=== PATIENT | female | born 1980 | race Caucasian/White ===

== ENCOUNTER 2020-12-17 09:06 | Outpatient (REF) | payer MEDICARE, MEDICAID, SELFPAY ==
[2020-12-17 10:16] LABS: Hematocrit 38.1 % (37-47); Hemoglobin 12.4 g/dl (12.0-16.0); Mean Corpuscular HGB Conc 32.5 g/dl (31.0-35.0); Mean Corpuscular Hemoglobin 27.6 pg (27.0-33.0); Mean Corpuscular Volume 84.7 fL (80-98); Platelet Count 248 X10*3/uL (160-400); Red Cell Distribution Width 13.2 % (11.0-16.0); White Blood Count 6.5 X10*3/uL (4.8-10.8)
[2020-12-17 11:00] LABS: Cholesterol 182 mg/dL; HDL Cholesterol 55 mg/dL; LDL Cholesterol Calculated 103 mg/dl; Triglycerides 123 mg/dL
[2020-12-17 11:24] LABS: Ferritin 27 ng/mL (10-250); Vitamin D 25-OH Total 27.4 ng/mL (>30)
[2020-12-17 11:25] LABS: Vitamin B12 859 pg/mL (200-900)
== END 2020-12-17 09:07 | disposition home or self-care (01) ==
LOC: HO.10HDL 09:06
PROVIDERS: Visit Provider Internal Medicine
DX: Z00.00 Encounter for general adult medical examination without abnormal findings (principal); Z86.2 Personal history of diseases of the blood and blood-forming organs and certain disorders involving the immune mechanism
CPT/HCPCS: 36415; 80061; 82306; 82607; 82728; 85027

== ENCOUNTER 2023-02-25 11:53 | Outpatient (REF) | payer MEDICARE, MEDICAID, SELFPAY | END 2023-02-25 11:54 | disposition home or self-care (01) | LOC: HO.HHCLNP 11:53 | PROVIDERS: Visit Provider Internal Medicine | DX: N89.8 Other specified noninflammatory disorders of vagina (principal) | CPT/HCPCS: 36415; 81513 ==

== ENCOUNTER 2023-07-24 10:42 | Outpatient (REF) | payer MEDICARE, MEDICAID, SELFPAY ==
--- NOTE | ~2023-07-24 | XR_ITS ---
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 FINDINGS: Lateral view of left forearm revealed irregularity of soft tissues and mild soft tissue swelling distally there is no joint effusion and gas formation and osseous structures are unremarkable. XR/XR forearm LT 2V IMPRESSION: Soft tissue irregularity but no ulcerations or gas formation seen.
--- NOTE | ~2023-07-24 | XR_ITS ---
EXAMINATION: XR FOREARM, RIGHT CLINICAL INFORMATION: Chronic a, with necrosis COMPARISON: None available. TECHNIQUE: AP and lateral views of the right forearm were obtained. FINDINGS: There is soft tissue irregularity consistent with known area of ulcerations. There is no gas in the soft tissues or osseous destruction. XR/XR forearm RT 2V IMPRESSION: Soft tissue irregularity corresponding to the ulcerations.
== END 2023-07-24 10:43 | disposition home or self-care (01) ==
LOC: HO.HHCX 10:42
PROVIDERS: Visit Provider Internal Medicine
DX: L98.493 Non-pressure chronic ulcer of skin of other sites with necrosis of muscle (principal)
CPT/HCPCS: 73090

== ENCOUNTER 2024-10-06 08:00 | Outpatient (RCR) | payer MEDICARE, MEDICAID, SELFPAY | END 2024-11-10 11:59 | disposition home or self-care (01) | LOC: HO.WCC 08:00 | PROVIDERS: PCP Internal Medicine; Referring Provider Internal Medicine; Visit Provider Colon & Rectal Surgery | DX: L98.492 Non-pressure chronic ulcer of skin of other sites with fat layer exposed (principal); M61.032 Myositis ossificans traumatica, left forearm; M61.03 Myositis ossificans traumatica, forearm | CPT/HCPCS: 11042; 11045; 15271; 15272; 15273; 15274; 97597; 97598; 99212; 99213; Q4158 ==

== ENCOUNTER 2024-11-24 09:30 | Outpatient (REF) | payer MEDICARE, MEDICAID, SELFPAY ==
--- OUTSIDE RECORDS SUMMARY | 2024-11-24 09:51 | XMS_ITS | Encounter Summary ---
Author Organization [employer] Address [address] [facility] 7t [place] [address] Care Team Providers Care Hole Digger Name Role Phone Argelia Oh MD Primary Care Provider + Encounter Details Date Type Department Care Team (Late st Contact Info) Description 07/29/2023 Orders Only [facility] MEDICINE [address] [place] [address] Lata Mcdonnell, RAJINDER [address] [place] [address] Social History Tobacco Use Types Packs/Day Years Used Date Smoking Tobacco: Never Passive Smoke Exposure: Never Smokeless Tobacco: Never Alcohol Use Standard Drinks/Week Comments Never 0 (1 standard drink = 0.6 oz pur e alcohol) PHQ-2 Answer Date Recorded Patient Health Questionnaire-2 Score 0 12/22/2022 Housing Stability Answer Date Recorded What is your housing situation today? I have kailee chen 03/16/[address] you li ve. Do you have problems with any of the following? None of the above 03/16/2023 Food Insecurity Answer Date Recorded Within the past 12 months, y ou worried that your food would run out before you got money to buy more: Never True 03/16/2023 Within the past 12 months,th e food you bought just didn't last and you didn't have enough money to get more: Never True Transportation Answer Date Recorded In the past 12 months, has l ack of transportation kept you from medical appts, meetings, work or from getting things needed for daily living? No 03/16/2023 Utilities Answer Date Recorded In the past 12 months, has t he electric, gas, oil or water company threatened to shut off services in your home? No 03/16/2023 Depression Answer Date Recorded Patient Health Questionnaire-2 Score 0 12/22/2022 Comments Unknown Sex and Gender Information Value Date Recorded Sex Assigned at Female 03/24/2022 10:17 AM EDT Legal Sex Female 10:17 AM EDT Gender Identity Female 03/24/2022 10:17 AM EDT Sexual Orientation Choose not to disclose 2021 10:17 AM EDT documented as of this encounter Plan of Treatment Not on file documented as of this encounter Procedures Procedure Name Priority Date/Time Associated Diagnosis Comments PAP SMEAR Routine 07/11/2021 12:00 AM EST documented in this encounter Results * Pap Smear (07/11/2021 12:00 AM EST) Swab us Historical Provider LAB CYTOLOGY ORDERABLES F inal Result Performing Organization Address [facility]/State/[facility] Co de Phone Number [facility] [address] [place] [phone] documented in this encounter Visit Diagnoses Not on filedocumented in this encounter Care Teams Hole Digger Relationship Specialty Start Date End Date Argelia Oh MD [address] [place] [phone] PCP - General Family Medicine 01/08/17 documented as of this encounter
[2024-11-24 11:06] LABS: MANUAL DIFF FLAG NO
[2024-11-24 11:25] LABS: Hematocrit 39.3 % (37.0-47.0); Hemoglobin 12.5 g/dl (12.0-16.0); Imm Gran Abs Auto 0.02 X10*3/uL (0.00-0.03); Imm Gran Pct Auto 0.3 % (0.0-0.4); Lymphocytes Absolute Auto 2.4 X10*3/uL (1.2-4.9); Mean Corpuscular HGB Conc 31.8 g/dl (31.0-35.0); Mean Corpuscular Hemoglobin 25.5 pg (27.0-33.0); Mean Corpuscular Volume 80.2 fL (80.0-98.0); NRBC Abs Auto 0.000 X10*3/uL (0.0-0.012); NRBC Pct Auto 0.0 /100WBC (0.0-0.2); Platelet Count 315 X10*3/uL (160-400); Red Blood Count 4.90 X10*6/uL (4.20-5.50); White Blood Count 7.2 X10*3/uL (4.8-10.8)
[2024-11-24 11:39] LABS: Alanine Aminotransferase 16 U/L (0-31); Albumin Level 4.1 g/dL (3.5-5.0); Alkaline Phosphatase 47 U/L (39-117); Anion Gap 12 (12-20); Aspartate Amino Transferase 25 U/L (5-31); Blood Urea Nitrogen 11 mg/dL (9-16); Calcium 8.8 mg/dL (8.4-10.2); Carbon Dioxide 20 mmol/L (22-29); Chloride 110 mmol/L (96-108); Cholesterol 180 mg/dL (<200); Estimated Glomerular Filt Rate > 60; HDL Cholesterol 68 mg/dL (>40); Potassium 3.8 mmol/L (3.3-5.1); Sodium 138 mmol/L (135-145); Total Protein 7.6 g/dL (6.5-8.0); Triglycerides 158 mg/dL (<150)
[2024-11-24 11:49] LABS: Syphilis Screen Nonreactive (Nonreactive)
[2024-11-24 12:22] LABS: HIV Num 1 0.06 S/CO (0.00-0.99)
[2024-11-24 13:01] LABS: Free T4 (Free Thyroxine) 1.07 ng/dL (0.71-1.85)
[2024-11-24 14:21] LABS: Reflex LDLD? No
[2024-11-28 14:34] LABS: VITAMIN D (1,25 OH) D3 57 pg/mL; Vit D (1,25-Dihydroxy) Total 57 pg/mL (18-72); Vitamin D (1,25 OH) D2 <8 pg/mL
== END 2024-11-24 09:31 | disposition home or self-care (01) ==
LOC: HO.HHCL 09:30
PROVIDERS: PCP Internal Medicine; Visit Provider Internal Medicine
DX: Z00.00 Encounter for general adult medical examination without abnormal findings (principal); Z13.6 Encounter for screening for cardiovascular disorders; Z11.4 Encounter for screening for human immunodeficiency virus [HIV]; F31.70 Bipolar disorder, currently in remission, most recent episode unspecified; L98.493 Non-pressure chronic ulcer of skin of other sites with necrosis of muscle; Z72.89 Other problems related to lifestyle
CPT/HCPCS: 36415; 80053; 80061; 82248; 82652; 84439; 84443; 85025; 85652; 86780; 87389

== ENCOUNTER 2024-12-09 13:51 | Outpatient (REF) | payer MEDICARE, MEDICAID, SELFPAY ==
--- OUTSIDE RECORDS SUMMARY | 2024-12-09 13:53 | XMS_ITS | Encounter Summary ---
Author Organization [employer] Address [address] [facility] 7t [place] [address] Care Team Providers Care Rock Picker Name Role Phone Argelia Oh MD Primary Care Provider + Encounter Details Date Type Department Care Team ([facility] st Contact Info) Description 07/29/2023 Orders Only [facility] MEDICINE [address] [place] [address] Lata Mcdonnell, RAJINDER [address] [place] [address] Social History Tobacco Use Types Packs/Day Years [...] as of this encounter Plan of Treatment Upcoming Encounters Date Type Department Care Team (Late st Contact Info) Description 12/16/2024 8:00 AM EDT Office Visit [facility] CHC ADULT DENTAL [address] [place] [address] Kait Gallardo 02/16/2025 10:30 AM EDT Office Visit [facility] MEDICINE [address] [place], [place] [phone] Argelia Oh MD [address] [place] [phone] documented as of this encounter Procedures Procedure Name Priority Date/Time Associated Diagnosis Comments PAP SMEAR Routine 07/11/2021 12:00 AM EST documented in this encounter Results * Pap Smear (07/11/2021 12:00 AM EST) Swab us Historical Provider LAB CYTOLOGY ORDERABLES F inal Result [facility] [address] [place] [address] documented in this encounter Visit Diagnoses Not on filedocumented in this encounter Care Teams Rock Picker Relationship Specialty Start Date End Date Argelia Oh MD [address] [place] [phone] PCP - General Family Medicine 01/08/17 documented as of this encounter
--- OUTSIDE RECORDS SUMMARY | 2024-12-09 13:53 | XMS_ITS | Encounter Summary ---
Author Organization [place] [facility] Care Team Providers Care Protocol Manager Name Role Phone Chun Kat NP Primary Care Provider Encounter Details Date Type Department Care Team ([facility] st Contact Info) Description 10/22/2015 Abstract [facility] Primary Care [place] [address] [facility], [address] [place] [phone] Provider, Historical . [phone] (Fax) Social History Tobacco Use Types Packs/Day Years Used Date Smoking Tobacco: Never Assessed Comments Unknown Sex and Gender Information Value Date Recorded Sex Assigned at Not on file Legal Sex Female 4:04 PM EDT Gender Identity Not on file Sexual Orientation Not on file documented as of this encounter Plan of Treatment Not on file documented as of this encounter Visit Diagnoses Not on filedocumented in this encounter Care Teams Protocol Manager Relationship Specialty Start Date End Date Chun Kat NP PCP - General 10/11/15 08/13/17 documented as of this encounter
[2024-12-09 16:13] LABS: Alanine Aminotransferase 16 U/L (0-31); Albumin Level 4.2 g/dL (3.5-5.0); Alkaline Phosphatase 52 U/L (39-117); Anion Gap 11 (12-20); Aspartate Amino Transferase 19 U/L (5-31); Blood Urea Nitrogen 15 mg/dL (9-16); Calcium 9.6 mg/dL (8.4-10.2); Carbon Dioxide 23 mmol/L (22-29); Chloride 110 mmol/L (96-108); Estimated Glomerular Filt Rate > 60; Potassium 3.9 mmol/L (3.3-5.1); Sodium 140 mmol/L (135-145); Total Protein 7.9 g/dL (6.5-8.0)
[2024-12-13 23:33] LABS: Thyroglobulin Antibodies <1 IU/mL (< or = 1)
== END 2024-12-09 13:52 | disposition home or self-care (01) ==
LOC: HO.HHCL 13:51
PROVIDERS: PCP Internal Medicine; Visit Provider Nurse Practitioner Family
DX: R79.89 Other specified abnormal findings of blood chemistry (principal); R94.6 Abnormal results of thyroid function studies; R35.89 Other polyuria; R53.83 Other fatigue
CPT/HCPCS: 36415; 80053; 86376; 86800

== ENCOUNTER 2025-01-18 09:39 | Outpatient (REF) | payer MEDICARE, MEDICAID, SELFPAY ==
--- OUTSIDE RECORDS SUMMARY | 2025-01-18 10:18 | XMS_ITS | Clinical Summary ---
Author Organization [employer] Address [address] [place] [phone] Care Team Providers Care Sewage Treatment Plant Operator Name Role Phone Unavailable Primary Care Provider Unavailabl e Medications hydrOXYzine (ATARAX) 50 MG tablet Take 1 tablet (50 mg total) by mouth 3 (three) times daily as needed for Itching. 90 tablet 11/28/2015 Active norethindrone-et hinyl estradiol (ORTHO-NOVUM 1-35 TAB,NORTREL 1-35 TAB) 1-35 mg-mcg per tablet Take 1 tablet by mouth daily. 28 tablet 3 11/28/2015 Active topiramate (TOPAMAX) 200 MG tablet Take 1 tablet (200 mg total) by mouth 2 (two) times daily. 60 tablet 3 11/28/2015 Active Social History Tobacco Use Types Packs/Day Years Used Date Smoking Tobacco: Never Assessed Comments Unknown Sex and Gender Information Value Date Recorded Sex Assigned at Not on file Legal Sex Female 4:04 PM EDT Gender Identity Not on file Sexual Orientation Not on file Plan of Treatment Health Maintenance Due Date Last Done Comments HIV screening 12/30/1992 Hepatitis C screening 12/30/1997 Cervical cancer screening 12/30/2000 Breast cancer screening 2019 Lipid disorder screening 2019 Tetanus adult (Td q 10,TDAP once) 09/27/2023 014 Covid-19 vaccine series ( season) 2024 Colon cancer screening, Colonoscopy 12/30/2024 Diabetes screening 12/30/2024 Influenza vaccine 01/23/2025 RSV Immunization (1 - 1-dose 75+ series) 12/30/2054 Meningococcal B Vaccine Aged Out No l onger eligible based on patient's age to complete this topic Meningococcal Vaccine Aged Out No meaghan rasheeda eligible based on patient's age to complete this topic Pneumococcal Vaccine (2 - 49 years) Aged Out No longer eligible b ased on patient's age to complete this topic
--- OUTSIDE RECORDS SUMMARY | 2025-01-18 10:18 | XMS_ITS | Encounter Summary ---
Author Organization [place] [facility] Care Team Providers Care Screwdown Operator Name Role Phone Chun Kat NP Primary Care Provider [phone] Encounter Details Date Type Department Care Team ([facility] st Contact Info) Description 10/22/2015 Abstract [facility] Primary Care [place] [address] [facility], [address] [place] [phone] Provider, Historical . [phone] (Fax) Social History Tobacco Use Types Packs/Day [...] on filedocumented in this encounter Care Teams Screwdown Operator Relationship Specialty Start Date End Date Chun Kat NP PCP - General 10/11/15 08/13/17 documented as of this encounter
[2025-01-18 11:12] LABS: MANUAL DIFF FLAG NO
[2025-01-18 11:17] LABS: Hematocrit 39.6 % (37.0-47.0); Hemoglobin 12.8 g/dl (12.0-16.0); Imm Gran Abs Auto 0.01 X10*3/uL (0.00-0.03); Imm Gran Pct Auto 0.2 % (0.0-0.4); Lymphocytes Absolute Auto 2.0 X10*3/uL (1.2-4.9); Mean Corpuscular HGB Conc 32.3 g/dl (31.0-35.0); Mean Corpuscular Hemoglobin 26.9 pg (27.0-33.0); Mean Corpuscular Volume 83.2 fL (80.0-98.0); NRBC Abs Auto 0.000 X10*3/uL (0.0-0.012); NRBC Pct Auto 0.0 /100WBC (0.0-0.2); Platelet Count 297 X10*3/uL (160-400); Red Blood Count 4.76 X10*6/uL (4.20-5.50); White Blood Count 6.4 X10*3/uL (4.8-10.8)
[2025-01-18 12:18] LABS: Free T4 (Free Thyroxine) 1.07 ng/dL (0.71-1.85); Thyroid Stimulating Hormone < 0.01 uIU/mL (0.32-4.0)
[2025-01-19 18:33] LABS: Lyme Abs Screen <0.90 index
== END 2025-01-18 09:40 | disposition home or self-care (01) ==
LOC: HO.HHCL 09:39
PROVIDERS: PCP Internal Medicine; Visit Provider Internal Medicine
DX: Z01.84 Encounter for antibody response examination (principal); R79.89 Other specified abnormal findings of blood chemistry; R94.6 Abnormal results of thyroid function studies; R53.1 Weakness
CPT/HCPCS: 36415; 84436; 84439; 84443; 84480; 84481; 85025; 86617; 86618

== ENCOUNTER 2025-02-16 10:02 | Outpatient (AMB) | payer MEDICARE, MEDICAID, SELFPAY ==
[2025-02-16 10:07] VITALS: BP 132/80; PULSE 70; O2SAT 100; BMI 20.9
--- NOTE | 2025-02-16 10:07 | A.OFFVIS_ITS ---
Vital Signs 3 02/16/25 10:07 Height 5 ft 5 in Weight 125 lb 10.616 oz BMI 20.9 BP 132/80 Blood Pressure Location Rt brachial Position Sitting Pulse 70 Pulse Source Pulse Oximeter Pulse Oximetry (%) 100 Oxygen Delivery Method Room Air Intake Visit Reasons: Hyperthyroidism Intake Note: NEW Patient presents here today to establish care for Hyperthyroidism: L Imaging Science Professor Required: No Accompanied by: Self / Same As Patient Allergies clavulanic acid (From AUGMENTIN) Allergy (Intermediate, Verified 02/16/25 10:09) STOMACH UPSET HPI Comments Details: HPI - Onset and duration of symptoms: Fatigue started before the summer. - Nature and severity of symptoms: The patient reports extreme fatigue, requiring sleep earlier than usual (as early as 4 PM). They have been sleeping more than usual, up to 10 hours a night, despite previous insomnia due to bipolar disorder. - Associated symptoms: Increased urination, persistent thirst, and difficulty losing weight despite dietary changes to a vegan diet and regular gym attendance. - Previous episodes of hyperthyroidism: None reported. - Family history of thyroid disease: Patient was adopted - Current and prior treatments: The patient is tapering off methadone for past opiate addiction, currently reducing by 1 mg per month. - Supplements: Taking Miguel multivitamins, probiotic, and metabolism supplements, which contain biotin ROS: - Constitutional: Fatigue - Neuro: No tremors or hand shaking - Psych: History of bipolar disorder; no current anxiety or nervousness - GI: No diarrhea; previously experienced constipation before dietary changes - Eyes: No changes in vision; no double vision or eye pain Physical exam: General: Well appearing. NAD. Not Cushingoid or Acromegalic Neck/Thyroid: Thyroid not enlarged, no nodules. Eyes: No conjunctival injection, not lid lag or proptosis CV: RRR, no murmur. No edema. Resp: Lungs clear to auscultation bilaterally Abdomen: Soft, nontender. nondistended Extremities/Neuro: No weakness or tremor of outstretched hands Labs: PFSH Surgical History (Updated 02/16/25 @ 10:10 by MANDO Schultz) Hx of breast augmentation History of dental surgery Hx of sinus surgery Family History (Updated 02/16/25 @ 10:10 by MANDO Schultz) Father Unknown family medical history Mother Unknown family medical history Social History (Updated 02/16/25 @ 10:09 by Bernabe Jordan Latasha) Alcohol intake: current Alcohol intake frequency: holidays/special occasions only Patient Tobacco Use Status: Never used Tobacco Physical Exam Vital Signs: Last Vital Signs Pulse 70 02/16/25 10:07 BP 132/80 02/16/25 10:07 Pulse Ox 100 02/16/25 10:07 Oxygen Delivery Method Room Air 02/16/25 10:07 BMI result Body Mass Index 20.9 Assessment & Plan Assessment & Plan (1) Thyroid dysfunction: Code(s): E07.9 - Disorder of thyroid, unspecified Category: Medical Plan: - Primary concern is unexplained fatigue. - we discussed in detail her fatigue is a complex symptom which multiple etiologies, and explore some of those etiologies including sleep apnea, insomnia, lack of physical activity, as well as endocrine causes as hypothyroidism, hypothyroidism, adrenal insufficiency. - Symptoms and current labs are not consistent with hyperthyroidism. - per record reviews she had has had thyroid tests checked twice, both showing suppressed TSH, but it seems to be in a setting of this patient taking the supplements containing biotin. - Potential interference of biotin with thyroid function tests. - Discontinue multivitamin supplements containing biotin for at least 7 days and repeat thyroid function tests (TSH, Free T4, Total T3). - Address sleep hygiene and assess for possible sleep disturbances. - Schedule a follow-up appointment in one month to review lab results and discuss further management. (2) Vitamin D deficiency: Code(s): E55.9 - Vitamin D deficiency, unspecified Category: Medical Plan Patient has a history of vitamin-D insufficiency, last checked in 2020 per our records. We will repeat labs and provide supplementation as needed. Advised the patient to start taking vitamin-D supplements 2056-0616 IU daily until labs are resulted Orders: Orders 2 Thyroid Stimulating Hormone 8 Months E07.9 - Disorder of thyroid, unspecified Free T4 (Free Thyroxine) 8 Months E07.9 - Disorder of thyroid, unspecified Triiodothyronine T3 Total 8 Months E07.9 - Disorder of thyroid, unspecified Vitamin D 25-OH Total Today E07.9 - Disorder of thyroid, unspecified Coding Level of Care Code New Pt Level 4 (05296) Diagnoses Thyroid dysfunction E07.9 Vitamin D deficiency E55.9 Time Spent (min) 45 Comment Time spent on review of previous records, history, exam/plan and patient education.
--- OUTSIDE RECORDS SUMMARY | 2025-02-16 12:06 | XMS_ITS | Encounter Summary ---
Author Organization [employer] Address [address] [facility] 7t [place] [address] Care Team Providers Care Milk Bottling Machine Operator Name Role Phone Argelia Oh MD Primary Care Provider + Encounter Details Date Type Department Care Team (Latest Contact Info) Description 02/15/2025 Travel Social History Tobacco Use Types Packs/Day Years Used Date Smoking Tobacco: Never Passive Smoke Exposure: Never Smokeless Tobacco: Never Alcohol Use Standard Drinks/Week Comments Never 0 (1 standard drink = 0.6 oz pur e alcohol) PHQ-2 Answer Date Recorded Patient Health Questionnaire-2 Score 0 12/22/2022 Alcohol Answer Date Recorded Frequency of Alcohol Consumption Not on file 09/16/2023 Average Number of Drinks Not on file 024 Frequency of Binge Drinking Not on file 08/24 Score 0 09/16/2023 Housing Stability Answer Date Recorded What is your housing situation today? I have kailee chen 07/22/[address] you li ve. Do you have problems with any of the following? None of the above 07/22/2024 Food Insecurity Answer Date Recorded Within the past 12 months, y ou worried that your food would run out before you got money to buy more: Never True 07/22/2024 Within the past 12 months,th e food you bought just didn't last and you didn't have enough money to get more: Never True Transportation Answer Date Recorded In the past 12 months, has l ack of transportation kept you from medical appts, meetings, work or from getting things needed for daily living? No 07/22/2024 Utilities Answer Date Recorded In the past 12 months, has t he electric, gas, oil or water company threatened to shut off services in your home? No 07/22/2024 Depression Answer Date Recorded Patient Health Questionnaire-2 Score 0 12/22/2022 Internet Access Answer Date Recorded Internet Access Q1 Yes 07/22/2024 Internet Access Q2 Not on file 07/22/2024 Comments No Sex and Gender Information Value Date Recorded Sex Assigned at Female 03/24/2022 10:17 AM EDT Legal Sex Female 10:17 AM EDT Gender Identity Female 03/24/2022 10:17 AM EDT Sexual Orientation Choose not to disclose 2021 10:17 AM EDT documented as of this encounter Plan of Treatment Upcoming Encounters Date Type Department Care Team (Late st Contact Info) Description 02/16/2025 3:15 PM EDT Office Visit [facility] MEDICINE [address] [place] [phone] Argelia Oh MD [address] [place] [address] documented as of this encounter Visit Diagnoses Not on filedocumented in this encounter Care Teams Milk Bottling Machine Operator Relationship Specialty Start Date End Date Argelia Oh MD [address] [place] [address] PCP - General Family Medicine 01/08/17 documented as of this encounter
--- OUTSIDE RECORDS SUMMARY | 2025-02-16 12:06 | XMS_ITS | Encounter Summary ---
Author Organization [employer] Address [address] [place] [address] 7 [place] [address] Care Team Providers Care Typewriter Assembler Name Role Phone Argelia Oh MD Primary Care Provider + Reason for Visit * Reason Onset Date Comments Med Refill 05/12/2024 Encounter Details Date Type Department Care Team ([facility] st Contact Info) Description 05/12/2024 Telephone [facility] MEDICINE [address] [place] [address] Argelia Oh MD [address] [place] [address] Med Refill Social History Tobacco Use Types Packs/Day Years [...] AM EDT documented as of this encounter Miscellaneous Notes * Telephone Encounter - Diane Joiner LPN - 05/12/2024 11:32 AM EST Medication pended to PCP for approval. * Telephone Encounter - Aryan Schofield - 05/12/2024 11:26 AM EST TC from pt requesting medication refill. Medications needing refill : valACYclovir (Valtrex) 1 g tablet To be sent to: [id number] [address] [facility] documented in this encounter Plan of Treatment Upcoming Encounters Date Type Department Care Team (Late st Contact Info) Description 02/16/2025 3:15 PM EDT Office Visit [facility] MEDICINE [address] [place] [address] Argelia Oh MD [address] [place] [address] documented as of this encounter Visit Diagnoses Not on filedocumented in this encounter Care Teams Typewriter Assembler Relationship Specialty Start Date End Date Argelia Oh MD [address] [place] [phone] PCP - General Family Medicine 01/08/17 documented as of this encounter
--- OUTSIDE RECORDS SUMMARY | 2025-02-16 12:06 | XMS_ITS | Encounter Summary ---
Author Organization [employer] Address [address] [facility] 7 [place] [address] Care Team Providers Care Clinic Director Name Role Phone Argelia Oh MD Primary Care Provider + Reason for Visit * Reason Onset Date Comments chart prep 02/15/2025 Encounter Details Date Type Department Care Team ([facility] st Contact Info) Description 02/15/2025 Telephone [facility] MEDICINE [address] [place] [address] Argelia Oh MD [address] [place] [address] chart prep Social History Tobacco Use Types Packs/Day Years [...] encounter Miscellaneous Notes * Telephone Encounter - Radha Howard MA - 02/15/2025 2:32 PM EDT Chart Prep Labs: done Images: not applicable Referrals: appointment pending Vaccines due: Covid, Flu, Hep B, and HPV Screenings: colonoscopy and mammogram Overdue care gaps: SBIRT, PHQ-9, PETROS-7, and Disability screen documented in this encounter Plan of Treatment Upcoming Encounters Date Type Department Care Team (Late st Contact Info) Description 02/16/2025 3:15 PM EDT Office Visit [facility] MEDICINE [address] [place] [address] Argelia Oh MD [address] [place] [address] documented as of this encounter Visit Diagnoses Not on filedocumented in this encounter Care Teams Clinic Director Relationship Specialty Start Date End Date Argelia Oh MD [address] [place] [phone] PCP - General Family Medicine 01/08/17 documented as of this encounter
--- OUTSIDE RECORDS SUMMARY | 2025-02-16 12:06 | XMS_ITS | Clinical Summary ---
Author Organization [employer] Address [address] [place] [phone] Care Team Providers Care Territory Sales Professional Name Role Phone Unavailable Primary Care Provider [...] adult (Td q 10,TDAP once) 09/27/2023 014 Influenza vaccine 12/23/2024 Colon cancer screening, Colonoscopy 12/30/2024 Diabetes screening 12/30/2024 Covid-19 vaccine series ( - season) 2025 RSV Immunization (1 - 1-dose 75+ series) [...]
--- OUTSIDE RECORDS SUMMARY | 2025-02-16 12:06 | XMS_ITS | Encounter Summary ---
Author Organization [employer] Address [address] [facility] 7t [place] [address] Care Team Providers Care General Handling Supervisor Name Role Phone Argelia Oh MD Primary Care Provider + Encounter Details Date Type Department Care Team ([facility] st Contact Info) Description 07/29/2023 Orders Only [facility] MEDICINE [address] [place] [address] Lata Mcdonnell, RAJINDER [address] [place] [address] Social History Tobacco Use Types Packs/Day Years [...] Description 02/16/2025 3:15 PM EDT Office Visit [facility] MEDICINE [address] [place] [phone] Argelia Oh MD [address] [place] [phone] documented as of this encounter Procedures Procedure Name Priority Date/Time Associated Diagnosis Comments PAP SMEAR Routine 07/11/2021 12:00 AM EST documented in this encounter Results * Pap Smear (07/11/2021 12:00 AM EST) Swab us Historical Provider LAB CYTOLOGY ORDERABLES F inal Result [facility] [address] [place] [address] documented in this encounter Visit Diagnoses Not on filedocumented in this encounter Care Teams General Handling Supervisor Relationship Specialty Start Date End Date Argelia Oh MD [address] [place] [phone] PCP - General Family Medicine 01/08/17 documented as of this encounter
--- OUTSIDE RECORDS SUMMARY | 2025-02-16 12:06 | XMS_ITS | Clinical Summary ---
Author Organization [employer] Address [address] [facility] [address] [place] [address] Care Team Providers Care Executive Assistant Name Role Phone Argelia Oh MD Primary Care Provider + Allergies No known active allergies Medications topiramate (Topamax) 200 MG tabletIndicati ons:Nonintract able chronic migraine TAKE 1 TABLET(200 MG) BY MOUTH TWICE DAILY 180 tablet 3 03/22/20 24 Active methadone (Dolophine) 10 MG/ML solution Take 40 mg by mouth. Active Sodium Fluoride 1.1 % creamIndicatio ns:Dental caries [place] teeth for 2 minutes, morning and night. Spit, do not rinse. Do not eat or drink anything for 30 minutes following use. 112 g 3 06/15/19 25 Active valACYclovir (Valtrex) 1 g tablet TAKE 2 TABLETS BY MOUTH EVERY 12 HOURS 4 tablet 5 01/19/20 25 Active valACYclovir (Valtrex) 1 g tablet TAKE 2 TABLETS BY MOUTH EVERY 12 HOURS 4 tablet 5 05/12/20 24 025 Discontinued Active Problems Problem Noted Date Diagnosed Date Polyuria 12/09/2024 Other fatigue 12/09/2024 Assessment & Plan (12/10/2024 10:55 AM EDT): Fatigue despite adequate sleep, possibly related to thyroid. Labs as ordered below Low TSH level 12/09/2024 Assessment & Plan (12/10/2024 10:54 AM EDT): Pcp has ordered work up, pt reports symptoms are worsening, reasonable to repeat labs today. If normal, I would order repeat thyroid panel in 4-8 weeks. Pt aware of plan Encounter for preventive health examination 05/2023 Assessment & Plan (07/29/2024 11:16 AM EST): Discussed with patient re increase fresh fruit and vegetable intake. Counseled re moderate exercise as tolerated, up to 20min/d Patient feels safe at home. PAP smear: UTD, will obtain record from [facility]. Mammogram: apparently UTD, will obtain records from [facility]. Eye exam: UTD 11/2025 Lipids/FBS: Overdue, remind to get labs done. Vaccinations: agreed to have Influenza today, other Adult IZ are UTD. Dental visit: UTD next one 11/2024 Assessment & Plan (07/24/2023 10:30 AM EST): Discussed with patient re increase fresh fruit and vegetable intake. Counseled re moderate exercise as tolerated, up to 20min/d Patient feels safe at home. PAP smear up to date, will obtain record from [facility] Mammogram apparently up to date, will obtain records from [facility] Eye exam overdue, she will make an appointment with her eye doctor Labs overdue, to be ordered Vaccinations TD up to date, Flu today. Dental visit overdue, info of dental clinics given today Chronic ulcer of skin, with necrosis of muscle 0 07/24/2023 Assessment & Plan (09/17/2023 9:05 AM EDT): Significant improvement on Alginate. Awaiting insurance approval for skin grafting Fu closely with wound clinic. Assessment & Plan (07/24/2023 3:39 PM EST): On both forearms, s/p IVDU Order HIV and Hepatitis testing Wound dressing with abs ointment done by RN today, will refer to wound clinic. Continue daily dressings with topical abs. Other problems related to lifestyle 07/24/2023 Assessment & Plan (07/24/2023 3:39 PM EST): Hepatitis profile ordered. Vaginal discharge 02/25/2023 Opioid dependence in remission 12/22/2022 Assessment & Plan (07/29/2024 12:43 PM EST): Apparently doing well on Methadone. Reminded her to follow up closely with gymnastic coach and Methadone clinicians. Advised to avoid rapid taper of Methadone. Assessment & Plan (09/17/2023 9:03 AM EDT): - Overall pt is doing well on 60 mg on Methadone, plans to continue to cut down slowly (1mg/mo or weekly if she can)) Assessment & Plan (07/24/2023 10:29 AM EST): Currently on methadone, advised to slow down the taper due to recent relapse Fu w mental health program Assessment & Plan (12/22/2022 5:12 PM EDT): Doing well, cutting down on Methadone Continue fu with methadone clinic pt feels safe at home and is able to reach out for safety Bipolar disorder in full remission 12/22/2022 Assessment & Plan (07/29/2024 12:41 PM EST): She is doing well on Topamax. Was referred to [facility] by Methadone counselor she will call for appointment. She is advised to reach out to us in case she need more information. Continue Topamax 200 mg BID. Continue opiate replacement therapy. Patient feels safe at home and is able to reach out for safety. Assessment & Plan (09/17/2023 9:04 AM EDT): Patient has been referred to counseling, was contacted and they will reach out to her with information Continue Topamax for now Counseled to fu closely with methadone program/counselor Assessment & Plan (07/24/2023 3:38 PM EST): Doing fairly well on Topamax, I will continue to Rx medications Counseled to slow down methadone taper and address this with recover transit coach operator Will refer to to help her connect with a prescriber / counselor Assessment & Plan (12/22/2022 5:12 PM EDT): Doing well on topamax 200mg BID continue fu with couselor at [facility] and [facility] Pt is able to reach out for safety counseled to avoid recreational substances FU with me in 6 months for PE Visual impairment 09/24/2022 Trichomonal infection 09/24/2022 Plantar fasciitis 09/24/2022 Pain in female genitalia on intercourse 09/25/19 23 Lower urinary tract symptoms 09/24/2022 Assessment & Plan (12/10/2024 10:54 AM EDT): Reassuring UA in clinic. Continue to monitor Candidiasis 09/24/2022 Herpes labialis 06/23/2017 Assessment & Plan (12/22/2022 5:13 PM EDT): No recent episodes pt to call back PRN for valtrex Encounters Date Type Department Care Team Description 02/15/[address] [address] Argelia Oh MD chart prep 02/15/2025 Travel 02/08/2025 Patient Outreach [address] [address] Argelia Oh MD Pre-visit Planning (SDCT screening completed on 07/22/2024) 01/26/2025 Results Follow-Up [address] [address] Argelia Oh MD Lyme Disease Ab with Reflex to Blot (IgG, IgM), TSH with Reflex to Free T4, CBC auto differential 01/16/[address] [address] Argelia Oh MD 01/11/[address] [address] Argelia Oh MD Lab Orders 01/10/2025 8:00 AM EDT Office Visit [facility] [address] [place] [address] Kavita Sanchez DDS 12/22/2024 9:00 AM EDT Office Visit [facility] [address] [place] [address] Kavita Sanchez, DDS 12/22/2024 8:00 AM EDT Office Visit [facility] [address] [place] [address] Toan Martins Dental calculus (Primary Dx) 12/21/[address] [address] Argelia Oh MD Results 12/16/2024 8:00 AM EDT Office Visit [facility] [address] [place] [address] Kavita Sanchez DDS 12/16/2024 Results Follow-Up [address] [address] Kristine Mitchell NP Comprehensive Metabolic Panel, POCT urinalysis dipstick manually resulted 12/15/2024 Travel 12/09/2024 1:20 PM EDT Office Visit [facility] [address] [place] [phone] Kristine Mitchell NP Lower urinary tract symptoms (Primary Dx); Polyuria; Other fatigue; Low TSH level 12/09/2024 Travel 12/09/[address] [address] Argelia Oh MD Nurse Triage 11/24/2024 Results Follow-Up [address] [address] Argelia Oh MD CBC auto differential, Comprehensive Metabolic Panel, Hepatic Function Panel, Additional followed-up results: 6 11/24/[address] [address] Argelia Oh MD January recall from Last 3 Months Immunizations Immunization Administration Dates Next Due Influenza injectable quadriv alent IIV4 with preservative 04/02/2017,02/25/2016 Influenza injectable quadrivalent preservative f ree 03/12/2020 Pfizer Covid-19 Vaccine 12+ 09/06/2020, Tdap 03/12/2020 Social History Tobacco Use Types Packs/Day Years Used Date Smoking Tobacco: Never Passive Smoke Exposure: Never Smokeless Tobacco: Never Tobacco Cessation:Counseling Given: Not Answered Alcohol Use Standard Drinks/Week Comments Never 0 [...] not to disclose 2021 10:17 AM EDT Last Filed Vital Signs Vital Sign Reading Time Taken Comments Blood Pressure 120/78 01/10/2025 8:13 AM EDT Pulse 66 12/22/2024 8:04 AM EDT Temperature 36.7 C (98 F) 12/09/2024 1:15 PM EDT Respiratory Rate 18 12/09/2024 1:15 PM EDT Oxygen Saturation 100% 12/09/2024 1:15 PM EDT Inhaled Oxygen Concentration - - Weight 58.3 kg (128 lb 9.6 oz) 12/09/2024 1:15 P M EDT Height 165.1 cm (5' 5 ) 12/09/2024 1:15 PM EDT Body Mass Index 21.4 12/09/2024 1:15 PM EDT Plan of Treatment Upcoming Encounters Date Type Department Care Team (Late st Contact Info) Description 02/16/2025 3:15 PM EDT Office Visit [facility] [address] [place] [address] Argelia Oh MD [address] [place], [place] [phone] Health Maintenance Due Date Last Done Comments CT Colonography 1979 Colonoscopy 1979 Colorectal Cancer Screening 1979 FIT DNA/Cologuard 1979 FIT 1979 FOBT 1979 Sigmoidoscopy 1979 Alcohol/Substance Use Screening 1991 Family Planning (PISQ) 12/30/1994 HPV Vaccines (1 - 3-dose series) 12/30/1994 Hepatitis C Screening 12/30/1997 Hepatitis B Vaccines (1 of 3 - 19+ 3-dose series) 12/30/1998 Mammogram 11/13/2023 11/12/2022 Depression Screening 12/23/2023 12/22/2022, 12/23/19 23 Dental Oral Exam 12/14/2024 06/15/2024, 07/2016, 01/29/2016 COVID-19 Vaccine ( season) 2025 04/09/2021, 09/06/2020, 08/16/2020 Influenza Vaccine (#1) 2025 , 04/09/2021, 03/12/2020, Additional history exists Cervical Cancer Screening 03/12/2025 HPV/Cotest 03/12/2025 03/12/2020 Dental Prophylaxis 06/25/2025 12/22/2024, 1 07/21/2023, 11/18/2017, Additional history exists SDOH Screening 07/22/2025 07/22/2024 Dental X-Ray: Bitewings 12/17/2025 12/17/19 25, 05/20/2024, 11/18/2017, Additional history exists Tobacco Screening 01/10/2026 01/10/2025 Disability Screening 02/15/2026 02/15/2025 Pap Smear 07/11/2026 07/11/2021, 03/12/2020 Dental X-Ray: Full Mouth 05/21/2027 05/20/2024, 09/0 10/2015 Zoster Vaccines (1 of 2) 12/30/2029 DTaP/Tdap/Td Vaccines (2 - Td or Tdap) 03/12/2030 03/12/2020 RSV Patients and Patients Aged 60 years or older (1 - 1-dose 75+ series) 12/30/2054 Hepatitis A Vaccines Aged Out 01/05/2020 No long er eligible based on patient's age to complete this topic HIV Screening Completed 11/24/2024 HIB Vaccines Aged Out No longer eligi ble based on patient's age to complete this topic IPV Vaccines Aged Out No longer eligi ble based on patient's age to complete this topic Meningococcal B Vaccine Aged Out No l onger eligible based on patient's age to complete this topic Meningococcal Vaccine Aged Out No meaghan rasheeda eligible based on patient's age to complete this topic Pneumococcal Vaccine: Pediatrics (0 to 5 Years) and At-Risk Patients (6 to 49) Years Aged Out No longer eligible based on patient's age to complete this topic RSV under 20 months Aged Out No longe r eligible based on patient's age to complete this topic Rotavirus Vaccines Aged Out No longer eligible based on patient's age to complete this topic Procedures Procedure Name Priority Date/Time Associated Diagnosis Comments CBC WITH AUTO DIFFERENTIAL Routine 01/18/2025 9:53 AM EDT Low TSH level Weakness TSH W/REFLEX TO FT4 Routine 01/18/2025 9 :53 AM EDT Low TSH level Weakness LYME DISEASE AB W/REFL TO BLOT (IGG, IGM) Routine 01/18/2025 9:53 AM EDT Low TSH level Weakness T4 (THYROXINE), TOTAL Routine 01/18/2025 9:53 AM EDT Low TSH level Abnormal thyroid function test TSH Routine 01/18/2025 9:53 AM EDT Low TSH level Abnormal thyroid function test T4, FREE Routine 01/18/2025 9:53 AM EDT Low TSH level Abnormal thyroid function test T3, TOTAL Routine 01/18/2025 9:53 AM EDT Low TSH level Abnormal thyroid function test T3, FREE Routine 01/18/2025 9:53 AM EDT Low TSH level Abnormal thyroid function test CASE PRESENTATION, DETAILED AND EXTENSIVE TREATMENT PLANNING Routine 01/10/2025 8:00 AM EDT 11 DFL RESIN-BASED COMPOSITE - 3 SURF, ANTERIOR Routine 01/10/2025 8:00 AM EDT CASE PRESENTATION, DETAILED AND EXTENSIVE TREATMENT PLANNING Routine 12/22/2024 9:00 AM EDT 10 DL RESIN-BASED COMPOSITE - 2 SURF, ANTERIOR Routine 12/22/2024 9:00 AM EDT PROPHYLAXIS - ADULT Routine 12/22/2024 8 :00 AM EDT CASE PRESENTATION, DETAILED AND EXTENSIVE TREATMENT PLANNING Routine 12/22/2024 8:00 AM EDT ORAL HYGIENE INSTRUCTIONS Routine 12/22/2024 8:00 AM EDT COMPREHENSIVE PERIODONTAL EVALUATION - NEW OR ESTABLISHED PATIENT Routine 12/16/2024 8:00 AM EDT BITEWINGS - 4 RADIOGRAPHIC IMAGES Routine 12/16/2024 8:00 AM EDT INTRAORAL - PERIAPICAL EACH ADDITIONAL RADIOGRAPHIC IMAGE Routine 12/16/2024 8:00 AM EDT INTRAORAL - PERIAPICAL FIRST RADIOGRAPHIC IMAGE Routine 12/16/2024 8:00 AM EDT CASE PRESENTATION, DETAILED AND EXTENSIVE TREATMENT PLANNING Routine 12/16/2024 8:00 AM EDT POCT URINALYSIS DIPSTICK Routine 12/09/2024 1:59 PM EDT Lower urinary tract symptoms COMPREHENSIVE METABOLIC PANEL Routine 12/09/2024 1:55 PM EDT Polyuria Other fatigue THYROGLOBULIN ANTIBODIES Routine 12/09/2024 1:55 PM EDT Low TSH level Abnormal thyroid function test THYROID PEROXIDASE ANTIBODIES Routine 12/09/2024 1:55 PM EDT Low TSH level Abnormal thyroid function test VITAMIN D 1,25 DIHYDROXY Routine 11/24/2024 9:38 AM EDT T4, FREE Routine 11/24/2024 9:38 AM EDT HIV 1/2 ANTIGEN/ANTIBODY, FOURTH GENERATION W/RFL Routine 11/24/2024 9:38 AM EDT TSH W/REFLEX TO FT4 Routine 11/24/2024 9 :38 AM EDT SED RATE BY MODIFIED WESTERGREN Routine 11/24/2024 9:38 AM EDT SYPHILIS SCREEN Routine 11/24/2024 9:38 AM EDT LIPID PANEL WITH REFLEX TO DIRECT LDL Routine 11/24/2024 9:38 AM EDT HEPATIC FUNCTION PANEL Routine 9:38 AM EDT COMPREHENSIVE METABOLIC PANEL Routine 11/24/2024 9:38 AM EDT CBC WITH AUTO DIFFERENTIAL Routine 11/24/2024 9:38 AM EDT PERIODIC ORAL EVALUATION - ESTABLISHED PATIENT Routine 06/15/2024 11:00 AM EST Dental caries INTRAORAL - COMPLETE SERIES OF RADIOGRAPHIC IMAGES Routine 05/20/2024 9:00 AM EST PAP SMEAR Routine 07/11/2021 12:00 AM EST HPV GENOTYPES 16,18/45 Routine 12:39 PM EDT from Last 3 Months or Most Recently Relevant to Health Maintenance Results * (ABNORMAL) TSH with Reflex to Free T4 (01/18/2025 9:53 AM EDT) Only the most recent of2 resultswithin the time period is included. TSH reflex Free T4 <0.01(L) 0.32 - 4.0 uIU/mL [facility] Blood 01/18/2025 9:53 AM EDT 01/18/2025 11:02 AM EDT Argelia Oh MD LAB BLOOD ORDERABLES Fin al Result Performing Organization Address [facility] Co de Phone Number [facility] [address] [place] [phone] * Lyme Disease Ab with Reflex to Blot (IgG, IgM) (01/18/2025 9:53 AM EDT) Lyme Antibody Screen <0.90 index [facility] Comment:Index Interpretation ----- < 0.90 Negative 0.90-1.09 Equivocal > 1.09 PositiveAs recommended by the Food and Drug Administration(FDA), all samples with positive or equivocalresults in a Borrelia burgdorferi antibody screenwill be tested using a blot method. Positive orequivocal screening test results should not beinterpreted as truly positive until verified as suchusing a supplemental assay (e.g., B. burgdorferi blot).The screening test and/or blot for B. burgdorferiantibodies may be falsely negative in early stagesof Lyme disease, including the period when erythemamigrans is apparent.THIS TEST WAS PERFORMED AT:[facility] [place] [phone] RANGEL MD Lyme Blot TNP [facility] 01/18/2025 9:53 AM EDT 01/18/2025 11:23 AM EDT Argelia Oh MD LAB BLOOD ORDERABLES Fin al Result Performing Organization Address [facility]/ZIP Co de Phone Number [facility] [address] [place] [phone] * (ABNORMAL) CBC auto differential (01/18/2025 9:53 AM EDT) Only the most recent of2 resultswithin the time period is included. White Blood Count 6.4 4.8 - 10.8 X10*3/uL [facility] Red Blood Count 4.76 4.20 - 5.50 X10*6/uL [facility] Hemoglobin 12.8 12.0 - 16.0 g/dl [facility] Hematocrit 39.6 37.0 - 47.0 % [facility] Mean Corpuscular Volume 83.2 80.0 - 98.0 fL [facility] Mean Corpuscular Hemoglobin 26.9(L) 27.0 - 33.0 pg [facility] Mean Corpuscular HGB Conc 32.3 31.0 - 35.0 g/dl [facility] Red Cell Distribution Width 14.5 11.0 - 16.0 % [facility] Platelet Count 297 160 - 400 X10*3/uL [facility] Mean Platelet Volume 10.2 9.4 - 12.3 fL [facility] Neutrophils Percent Auto 58.8 45 - 73 % [facility] Imm Gran Pct Auto 0.2 0.0 - 0.4 % [facility] Lymphocytes Percent Auto 31.9 20 - 40 % [facility] Monocytes Percent Auto 4.1 2 - 11 % [facility] Eosinophils Percent Auto 4.8(H) 0 - 4 % [facility] Basophils Percent Auto 0.2 0 - 2 % [facility] NRBC Pct Auto 0.0 0.0 - 0.2 /100WBC [facility] Neutrophils Absolute Auto 3.8 2.0 - 8.3 x10*3/uL [facility] Imm Gran Abs Auto 0.01 0.00 - 0.03 X10*3/uL [facility] Lymphocytes Absolute Auto 2.0 1.2 - 4.9 X10*3/uL [facility] Monocytes Absolute Auto 0.3 0.1 - 1.2 X10*3/uL [facility] Eosinophils Absolute Auto 0.3 0.0 - 0.4 X10*3/uL [facility] Basophils Absolute Auto 0.0 0.0 - 0.2 X10*3/uL [facility] NRBC Abs Auto 0.000 0.0 - 0.012 X10*3/uL [facility] Blood Venous blood specimen / Unknown 01/18/2025 9:53 AM EDT 01/18/2025 11:02 AM EDT Argelia Oh MD LAB BLOOD ORDERABLES Fin al Result Performing Organization Address [facility]/ZIP Co de Phone Number [facility] [address] [place] [phone] * T3, Free (01/18/2025 9:53 AM EDT) T3, Free 3.9 2.3 - 4.2 pg/mL [facility] Comment:THIS TEST WAS PERFOR MED AT:[facility] [place] [id number] RANGEL MD Blood Venous blood specimen / Unknown 01/18/2025 9:53 AM EDT 01/18/2025 11:02 AM EDT Argelia Oh MD LAB BLOOD ORDERABLES Fin al Result Performing Organization Address [facility] Co de Phone Number [facility] [address] [place] [phone] * (ABNORMAL) T3, Total (01/18/2025 9:53 AM EDT) T3, Total 184(A) 76 - 181 ng/dL [facility] Comment:THIS TEST WAS PERFOR MED AT:[facility] [place] [phone] RANGEL MD Blood Venous blood specimen / Unknown 01/18/2025 9:53 AM EDT 01/18/2025 11:02 AM EDT Argelia Oh MD LAB BLOOD ORDERABLES Fin al Result Performing Organization Address [facility] Co de Phone Number [facility] [address] [place] [phone] * (ABNORMAL) TSH (01/18/2025 9:53 AM EDT) Thyroid Stimulating Hormone <0.01(L) 0.32 - 4.0 uIU/mL [facility] Comment:TSH 3rd Generation ( [facility]) Blood Venous blood specimen / Unknown 01/18/2025 9:53 AM EDT 01/18/2025 11:02 AM EDT Argelia Oh MD LAB BLOOD ORDERABLES Fin al Result Performing Organization Address [facility] de Phone Number [facility] [address] [place] [phone] * T4, Free (01/18/2025 9:53 AM EDT) Only the most recent of2 resultswithin the time period is included. Free T4 (Free Thyroxine) 1.07 0.71 - 1.85 ng/dL [facility] Blood Venous blood specimen / Unknown 01/18/2025 9:53 AM EDT 01/18/2025 11:02 AM EDT Argelia Oh MD LAB BLOOD ORDERABLES Fin al Result Performing Organization Address [facility] Co de Phone Number [facility] [address] [place] [phone] * T4 (Thyroxine), Total (01/18/2025 9:53 AM EDT) T4 Thyroxine 11.5 4.5 - 12.0 ug/dL [facility] Blood Venous blood specimen / Unknown 01/18/2025 9:53 AM EDT 01/18/2025 11:02 AM EDT Argelia Oh MD LAB BLOOD ORDERABLES Fin al Result Performing Organization Address [facility]/ZIP Co de Phone Number [facility] [address] [place] [phone] * POCT urinalysis dipstick manually resulted (12/09/2024 1:59 PM EDT) Color, UA Yellow Clarity, UA Clear Glucose, UA Negative Bilirubin, UA Negative Ketones, UA Negative Spec Grav, UA 1.025 Blood, UA Negative Negative, None Detected pH, UA 6.0 Protein, UA Negative Urobilinogen, UA 0.2 Leukocytes, UA Negative Negative, Rare, Trace Nitrite, UA Negative Negative, None Detected Urine 12/09/2024 1:59 PM EDT Result [facility] Kristine Mitchell NP POINT OF CARE TEST ENTER/EDIT OR DERABLES Final Result * Thyroid Peroxidase Antibodies (12/09/2024 1:55 PM EDT) Thyroid Peroxidase Antibodies 1 <9 IU/mL [facility] Comment:THIS TEST WAS PERFOR MED AT:[facility] [place] [phone] RANGEL MD Blood Venous blood specimen / Unknown 12/09/2024 1:55 PM EDT 12/09/2024 3:51 PM EDT Argelia Oh MD LAB BLOOD ORDERABLES Fin al Result Performing Organization Address City/[facility]/ZIP Co de Phone Number [facility] [address] [place] [phone] * Thyroglobulin Antibodies (12/09/2024 1:55 PM EDT) Thyroglobulin Antibodies <1 < or = 1 IU/mL [facility] Comment:THIS TEST WAS PERFOR MED AT:[facility] [place] [phone] RANGEL MD Blood Venous blood specimen / Unknown 12/09/2024 1:55 PM EDT 12/09/2024 3:51 PM EDT us Argelia Oh MD LAB BLOOD ORDERABLES Fin al Result [facility] [address] [place] [phone] * (ABNORMAL) Comprehensive Metabolic Panel (12/09/2024 1:55 PM EDT) Only the most recent of2 resultswithin the time period is included. Sodium 140 135 - 145 mmol/L [facility] Potassium 3.9 3.3 - 5.1 mmol/L [facility] Chloride 110(H) 96 - 108 mmol/L [facility] Carbon Dioxide 23 22 - 29 mmol/L [facility] Anion Gap 11(L) 12 - 20 [facility] Urea Nitrogen (BUN) 15 9 - 16 mg/dL [facility] Creatinine, Serum 0.70 0.5 - 1.4 mg/dL [facility] Estimated Glomerular Filt Rate >60 [facility] Comment:Chronic Kidney Disea se: Estimated GFR < 60 mL/min/[id number] Kidney Disease: Estimated GFR < 15 mL/min/1.73m2 Glucose 82 60 - 115 mg/dL [facility] Calcium 9.6 8.4 - 10.2 mg/dL [facility] Bilirubin, Total 0.3 0.0 - 1.0 mg/dL [facility] Aspartate Amino Transferase 19 5 - 31 U/L [facility] Alanine Aminotransferase 16 0 - 31 U/L [facility] Total Protein 7.9 6.5 - 8.0 g/dL [facility] Albumin Level 4.2 3.5 - 5.0 g/dL [facility] Alkaline Phosphatase 52 39 - 117 U/L [facility] Blood Venous blood specimen / Unknown 12/09/2024 1:55 PM EDT 12/09/2024 3:51 PM EDT us Kristine Mitchell NP LAB BLOOD ORDERABLES Final Resul t Performing Organization Address City/[facility]/ZIP Co de Phone Number [facility] [address] [place] [phone] * Syphilis Screen (11/24/2024 9:38 AM EDT) Syphilis Screen Nonreactive Nonreactive [facility] 11/24/2024 9:38 AM EDT 11/24/2024 11:02 AM EDT us Argelia Oh MD LAB BLOOD ORDERABLES Fin al Result Performing Organization Address City/[facility] Co de Phone Number [facility] [address] [place] [phone] * (ABNORMAL) Lipid Panel with Reflex to Direct LDL (11/24/2024 9:38 AM EDT) Triglycerides 158(H) <150 mg/dL [facility] Comment:Desirable Triglyceri de: less than 150 mg/dLBorderline High Triglyceride 150-199 mg/dLHigh Triglyceride: 200-499 mg/dLVery High Triglyceride: greater than or equal to 5OO mg/dL Cholesterol 180 <200 mg/dL [facility] Comment:Desirable Cholestero l: less than 200 mg/dLBorderline High Cholesterol: 200-239 mg/dLHigh Cholesterol: greater than 239 mg/dL LDL Cholesterol Calculated 81 <100 mg/dL [facility] Comment:Desirable LDL: less than 100 mg/dLNear Optimal/Above Optimal LDL: 110- 129 mg/dLBorderline High LDL: 130-159 mg/dLHigh LDL: 160-189 mg/dLVery High LDL: greater than or equal to 190 mg/dL HDL Cholesterol 68 >40 mg/dL [facility] Comment:Desirable HDL: great er than 40 mg/dL Note: This HDL assay may give artificially low results in patients with liver disease. 11/24/2024 9:38 AM EDT 11/24/2024 11:02 AM EDT Argeila Oh MD LAB BLOOD ORDERABLES Fin al Result Performing Organization Address [facility] Co de Phone Number [facility] [address] [place] [phone] * Vitamin D 1,25 dihydroxy (11/24/2024 9:38 AM EDT) Vit D (1,25-Dihydroxy) Total 57 18 - 72 pg/mL [facility] VITAMIN D (1,25 OH) D3 57 pg/mL [facility] Vitamin D (1,25 OH) D2 <8 pg/mL [facility] Comment:Vitamin D3, 1,25(OH) 2 indicates both endogenousproduction and supplementation. Vitamin D2, 1,25(OH)2is an indicator of exogenous sources, such as diet orsupplementation. Interpretation and therapy are basedon measurement of Vitamin D,1,25(OH)2, Total.This test was developed and its analyticalperformance characteristics have been determinedby [facility], [place], [place].It has not been cleared or approved by the FDA. Thisassay has been validated pursuant to the CLIAregulations and is used for clinical purposes.THIS TEST WAS PERFORMED AT:[facility] [place] [address]FBNUMAODARIUSZ CARRASCO MD,PHD 11/24/2024 9:38 AM EDT 11/24/2024 11:02 AM EDT Argelia Oh MD LAB BLOOD ORDERABLES Fin al Result Performing Organization Address [facility]/ZIP Co de Phone Number [facility] [address] [place] [phone] * HIV-1/2 Antigen and Antibodies, Fourth Generation, with Reflexes (11/24/2024 9:38 AM EDT) Pathologist [facility] HIV AB/AG Nonreactive Nonreactive [facility] Comment:HIV-1 p24 Ag and/or HIV-1/HIV-2 Ab not detected.A test result that is nonreactive does not exclude thepossibility of exposure to or infection with HIV-1 and/orHIV-2. Nonreactive results in this assay for individualswith prior exposure to HIV-1 and/or HIV-2 may be due toantigen and antibody levels that are below the limit ofdetection of this assay.The [employer] HIV Ag/Ab Combo assay result andsupplemental assay results should be interpreted inconjunction with the patient's clinical presentation,history and other laboratory results. If the results areinconsistent with clinical evidence, additional testing issuggested to confirm the result. 11/24/2024 9:38 AM EDT 11/24/2024 11:02 AM EDT us Argelia Oh MD LAB BLOOD ORDERABLES Fin al Result Performing Organization Address [facility] Co de Phone Number [facility] [address] [place] [phone] * Sed Rate by Modified Westergren (11/24/2024 9:38 AM EDT) Pathologist [facility] Erythrocyte Sedimentation Rate 7 0 - 20 MM/HR [facility] Comment:Patients with polycy themia and many hemoglobin abnormalitiesmay have depressed sed rates whereas patients with anemiamay have elevated sed rates. 11/24/2024 9:38 AM EDT 11/24/2024 11:02 AM EDT us Argelia Oh MD LAB BLOOD ORDERABLES Fin al Result Performing Organization Address City/[facility]/ZIP Co de Phone Number [facility] [address] [place] [phone] * Hepatic Function Panel (11/24/2024 9:38 AM EDT) Bilirubin, Direct 0.2 0.0 - 0.5 mg/dL [facility] 11/24/2024 9:38 AM EDT 11/24/2024 11:02 AM EDT Argelia Oh MD LAB BLOOD ORDERABLES Fin al Result [facility] [address] [place] [phone] * Pap Smear (07/11/2021 12:00 AM EST) Swab Historical Provider LAB CYTOLOGY ORDERABLES F inal Result Performing Organization Address [facility] Co de Phone Number [facility] [address] [place] [address] * HPV GENOTYPES 16,18/45 (03/12/2020 12:39 PM EDT) Pathologist [facility] HPV 16 RNA NOT DETECTED NOT DETECTED [facility] HPV 18/45 RNA NOT DETECTED NOT DETECTED [facility] Comment: This test was performed using the APTIMA HPV 16 18/45 genotype assay ([employer] The assay can differentiate HPV 16 from HPV 18 and/or HPV 45, but does not differentiate between HPV 18 and HPV 45. The analytical performance characteristics of this assay have been determined by [facility]. The modifications have not been cleared or approved by the FDA. This assay has been validated pursuant to the CLIA regulations and is used for clinical purposes. 03/12/2020 12:3 9 PM EDT Argelia Oh MD LAB CYTOLOGY ORDERABLES Final Result Performing Organization Address City/[facility]/ZIP Co de Phone Number [facility] [address] from Last 3 Months or Most Recently Relevant to Health Maintenance Insurance [facility] STANDARD MEDICARE DENTAL-[facility] MEDICAID STAND ADULT Care Teams Executive Assistant Relationship Specialty Start Date End Date Argelia Oh MD [address] [place] [address] [place] [phone] PCP - General Family Medicine 01/08/17
--- OUTSIDE RECORDS SUMMARY | 2025-02-16 12:06 | XMS_ITS | Encounter Summary ---
Author Organization [place] [facility] Care Team Providers Care Mechanical Service Representative Name Role Phone Chun Kat NP Primary Care Provider [phone] Encounter Details Date Type Department Care Team ([facility] st Contact Info) Description 10/22/2015 Abstract [facility] Primary Care [place] [address] [facility], [address] [place] [phone] Provider, Historical . [phone] (Fax) Social History Tobacco Use Types Packs/Day [...] on filedocumented in this encounter Care Teams Mechanical Service Representative Relationship Specialty Start Date End Date Chun Kat NP PCP - General 10/11/15 08/13/17 documented as of this encounter
--- OUTSIDE RECORDS SUMMARY | 2025-02-16 12:06 | XMS_ITS | Encounter Summary ---
Author Organization [employer] Address [address] [facility] 7t [place] [address] Care Team Providers Care Program Specialist Name Role Phone Argelia Oh MD Primary Care Provider + Encounter Details Date Type Department Care Team (Late st Contact Info) Description 07/25/2022 Orders Only [facility] [address] [place] [address] Diane Joiner LPN Social History Tobacco Use Types Packs/Day Years [...] Description 02/16/2025 3:15 PM EDT Office Visit [facility] [address] [place] [address] Argelia Oh MD [address] [place], [place] [phone] documented as of this encounter Procedures Procedure Name Priority Date/Time Associated Diagnosis Comments SURESWAB(R) ADV BACTERIAL VAGINOSIS (BV), TMA Routine 02/25/2023 11:53 AM EDT documented in this encounter Results * SureSwab?? Advanced Bacterial Vaginosis (BV), TMA (02/25/2023 11:53 AM EDT) SureSwab 9R) ADV Bacterial Vaginosis (BV), TMA NEGATIVE NEGATIVE [facility] Comment:THIS TEST WAS PERFOR MED AT:[email or web address] [place] [phone] RANGEL MD 02/25/2023 11:5 3 AM EDT 02/25/2023 6:26 PM EDT Yadira Pak MD LAB BODY FLUIDS AND S TOOLS ORDERABLES Final Result [facility] [address] [place] [phone] documented in this encounter Visit Diagnoses Not on filedocumented in this encounter Care Teams Program Specialist Relationship Specialty Start Date End Date Argelia Oh MD [address] [place] [phone] PCP - General Family Medicine 01/08/17 documented as of this encounter
--- OUTSIDE RECORDS SUMMARY | 2025-02-16 12:06 | XMS_ITS | Encounter Summary ---
Author Organization [employer] Address [address] [place] [address] 7 [place] [address] Care Team Providers Care Hand Hose Cutter Name Role Phone Argelia Oh MD Primary Care Provider + Reason for Visit * Reason Onset Date Comments Med Refill 03/29/2024 Encounter Details Date Type Department Care Team ([facility] st Contact Info) Description 03/29/2024 Telephone [facility] [address] [place] [address] Argelia Oh MD [address] [place] [address] Med Refill Social History Tobacco Use Types [...] Telephone Encounter - Diane Joiner LPN - 03/29/2024 10:15 AM EST Medication pended to PCP for approval. * Telephone Encounter - Hodan Dooley - 03/29/2024 10:07 AM EST TC from pt requesting medication refill. Medications needing refill : valACYclovir (Valtrex) 1 g tablet To be sent to: [email or web address] #[id number] documented in this encounter Plan of Treatment Upcoming Encounters Date Type Department Care Team (Late st Contact Info) Description 02/16/2025 3:15 PM EDT Office Visit [facility] [address] [place], [place] [phone] Argelia Oh MD [address] [place] [address] documented as of this encounter Visit Diagnoses Not on filedocumented in this encounter Care Teams Hand Hose Cutter Relationship Specialty Start Date End Date Argelia Oh MD [address] [place] [phone] PCP - General Family Medicine 01/08/17 documented as of this encounter
== END 2025-02-16 10:46 | disposition home or self-care (01) ==
LOC: HO.ENCR 10:02
PROVIDERS: PCP Internal Medicine; Visit Provider Student in an Organized Health Care Education/Training Program
DX: E07.9 Disorder of thyroid, unspecified (principal); E55.9 Vitamin D deficiency, unspecified
CPT/HCPCS: 99204

== ENCOUNTER → 2025-02-16 10:02 | Outpatient (BNVA) | payer MEDICARE, MEDICAID, SELFPAY | PROVIDERS: PCP Internal Medicine; Visit Provider Student in an Organized Health Care Education/Training Program | DX: E07.9 Disorder of thyroid, unspecified (principal); E55.9 Vitamin D deficiency, unspecified | CPT/HCPCS: 99202 ==

== ENCOUNTER 2025-03-03 09:07 | Outpatient (REF) | payer MEDICARE, MEDICAID, SELFPAY ==
--- OUTSIDE RECORDS SUMMARY | 2025-03-03 09:34 | XMS_ITS | Encounter Summary ---
Author Organization [employer] Address [address] [facility] 7t [place] [address] Care Team Providers Care Filter Tank Tender Helper Name Role Phone Argelia Oh MD Primary Care Provider + Encounter Details Date Type Department Care Team ([facility] st Contact Info) Description 07/29/2023 Orders Only [facility] MEDICINE [address] [place] [address] Lata Mcdonnell, RAJINDER [address] [place] [address] Social History Tobacco Use Types Packs/Day Years [...] ORDERABLES F inal Result Performing Organization Address [facility]/State/[facility] Co de Phone Number [facility] [address] [place] [phone] documented in this encounter Visit Diagnoses Not on filedocumented in this encounter Care Teams Filter Tank Tender Helper Relationship Specialty Start Date End Date Argelia Oh MD [address] [place] [phone] PCP - General Family Medicine 01/08/17 documented as of this encounter
--- OUTSIDE RECORDS SUMMARY | 2025-03-03 09:34 | XMS_ITS | Encounter Summary ---
Author Organization [employer] Address [address] [place] [address] 7 [place] [address] Care Team Providers Care Owner Spa Director Name Role Phone Argelia Oh MD Primary Care Provider + Reason for Visit * Reason Onset Date Comments Med Refill 05/12/2024 Encounter Details Date Type Department Care Team ([facility] st Contact Info) Description 05/12/[address] [facility] MEDICINE [address] [place] [phone] Argelia Oh MD [address] [place] [address] Med Refill Social History Tobacco Use Types [...] 1 g tablet To be sent to: [facility] #[id number] documented in this encounter Plan of Treatment Not on file documented as of this encounter Visit Diagnoses Not on filedocumented in this encounter Care Teams Owner Spa Director Relationship Specialty Start Date End Date Argelia Oh MD [address] [place] [phone] PCP - General Family Medicine 01/08/17 documented as of this encounter
--- OUTSIDE RECORDS SUMMARY | 2025-03-03 09:34 | XMS_ITS | Encounter Summary ---
Author Organization [employer] Address [address] [place] [address] 7 [place] [address] Care Team Providers Care Buggy Runner Name Role Phone Argelia Oh MD Primary Care Provider + Reason for Visit * Reason Onset Date Comments Med Refill 03/29/2024 Encounter Details Date Type Department Care Team ([facility] st Contact Info) Description 03/29/2024 Telephone [facility] MEDICINE [address] [place] [address] Argelia Oh MD [address] [place] [address] Med Refill Social History Tobacco Use Types [...] 1 g tablet To be sent to: [facility] #[id number] documented in this encounter Plan of Treatment Not on file documented as of this encounter Visit Diagnoses Not on filedocumented in this encounter Care Teams Buggy Runner Relationship Specialty Start Date End Date Argelia Oh MD [address] [place] [phone] PCP - General Family Medicine 01/08/17 documented as of this encounter
--- OUTSIDE RECORDS SUMMARY | 2025-03-03 09:34 | XMS_ITS | Clinical Summary ---
Author Organization [employer] Address [address] [place] [address] 7[address] [place] [address] Care Team Providers Care Soapstoner Name Role Phone Argelia Oh MD Primary Care Provider + Allergies No known active allergies Medications methadone (Dolophine) 10 MG/ML solution Take 40 mg by mouth. Active Sodium Fluoride 1.1 % creamIndicatio ns:Dental caries [place] teeth for 2 minutes, morning and night. Spit, do not rinse. Do not eat or drink anything for 30 minutes following use. 112 g 3 06/15/19 25 Active valACYclovir (Valtrex) 1 g tablet TAKE 2 TABLETS BY MOUTH EVERY 12 HOURS 4 tablet 5 01/19/20 25 Active topiramate (Topamax) 200 MG tabletIndicati ons:Nonintract able chronic migraine Take 1 tablet (200 mg) by mouth 2 times daily. 180 tablet 3 02/17/20 25 Active topiramate (Topamax) 200 MG tabletIndicati ons:Nonintract able chronic migraine TAKE 1 TABLET(200 MG) BY MOUTH TWICE DAILY 180 tablet 3 03/22/20 24 025 Discontinued(Re order (will not trigger notification to Pharmacy)) Active Problems Problem Noted Date Diagnosed Date Nonintractable chronic migraine 02/16/2025 Screening mammogram for breast cancer 02/16/2025 Polyuria 12/09/2024 Other fatigue 12/09/2024 Assessment & [...] PAP smear: UTD, will obtain record from [facility]. Mammogram: apparently UTD, will obtain records from [facility]. Eye exam: UTD 11/2025 Lipids/FBS: Overdue, remind [...] up to date, will obtain record from [facility] Mammogram apparently up to date, will obtain records from [facility] Eye exam overdue, she will make an [...] Vaginal discharge 02/25/2023 Opioid dependence in remission (CMS/HCC) 023 Assessment & Plan (07/29/2024 12:43 PM EST): Apparently doing well on Methadone. Reminded her to follow up closely with field hockey and lacrosse coach and Methadone clinicians. Advised to avoid [...] doing well on Topamax. Was referred to [facility] by Methadone counselor she will call for [...] methadone taper and address this with recover swim coach Will refer to to help her connect with a prescriber / counselor Assessment & Plan (12/22/2022 5:12 PM EDT): Doing well on topamax 200mg BID continue fu with couselor at [facility] and [facility] Pt is able to reach out for safety counseled to avoid recreational substances FU with [facility] in 6 months for PE Visual impairment [...] Encounters Date Type Department Care Team Description 02/21/[address] [address] Argelia Oh MD Breast Cancer Screening 02/16/2025 3:15 PM EDT Office Visit [address] [address] Argelia Oh MD Screening mammogram for breast cancer (Primary Dx); Nonintractable chronic migraine 02/16/2025 Travel 02/15/[address] [address] Argelia Oh MD chart prep 02/15/2025 Travel 02/08/2025 Patient Outreach [address] [address] Argelia Oh MD Pre-visit Planning ([facility] screening completed on 07/22/2024) 01/26/2025 Results Follow-Up [address] [address] Argelia Oh MD Lyme Disease Ab with Reflex to Blot (IgG, IgM), TSH with Reflex to Free T4, CBC auto differential 01/16/[address] [address] Argelia Oh MD 01/11/[address] [address] Argelia Oh MD Lab Orders 01/10/2025 8:00 AM EDT Office Visit [facility] [address] [place] [address] Kavita Sanchez DDS 12/22/2024 9:00 AM EDT Office Visit [facility] [address] [place] [address] Kavita Sanchez, DDS 12/22/2024 8:00 AM EDT Office Visit [facility] [address] [place] [address] Toan Martins Dental calculus (Primary Dx) 12/21/[address] [address] Argelia Oh MD Results 12/16/2024 8:00 AM EDT Office Visit [facility] [address] [place] [address] Kavita Sanchez, DDS 12/16/2024 Results Follow-Up [address] [address] Kristine Mitchell NP Comprehensive Metabolic Panel, POCT urinalysis dipstick manually resulted 12/15/2024 Travel 12/09/2024 1:20 PM EDT Office Visit [facility] [address] [place] [phone] Kristine Mitchell NP Lower urinary tract symptoms (Primary Dx); Polyuria; Other fatigue; Low TSH level 12/09/2024 Travel 12/09/[address] [address] Argelia Oh MD Nurse Triage from Last 3 Months Immunizations Immunization Administration [...] drink = 0.6 oz pur e alcohol) Alcohol Answer Date Recorded Frequency of Alcohol Consumption Not on file 09/16/2023 Average Number of Drinks Not on file 024 Frequency of Binge Drinking Not on file 08/24 Score 0 09/16/2023 Depression Answer Date Recorded Patient Health Questionnaire-9 Score 9 02/16/2025 Patient Health Questionnaire-9 Score 9 02/16/2025 Last PHQ-9: Questionnaire Data Not on file 0 02/16/2025 Housing Stability Answer Date Recorded What is [...] Answer Date Recorded Patient Health Questionnaire-2 Score 2 02/16/2025 Internet Access Answer Date Recorded Internet Access [...] Sign Reading Time Taken Comments Blood Pressure 112/68 02/16/2025 3:26 PM EDT Pulse 64 02/16/2025 3:26 PM EDT Temperature 36.1 C (97 F) 02/16/2025 3:26 PM EDT Respiratory Rate 14 02/16/2025 3:26 PM EDT Oxygen Saturation 100% 12/09/2024 1:15 PM EDT Inhaled Oxygen Concentration - - Weight 56.9 kg (125 lb 8 oz) 02/16/2025 3:26 PM EDT Height 165.1 cm (5' 5 ) 02/16/2025 3:26 PM EDT Body Mass Index 20.88 02/16/2025 3:26 PM EDT Plan of Treatment Health Maintenance Due Date Last Done Comments CT Colonography 1979 Colonoscopy 1979 Colorectal Cancer Screening 1979 FIT DNA/Cologuard 1979 FIT 1979 FOBT 1979 Sigmoidoscopy 1979 Family Planning (PISQ) 12/30/1994 HPV Vaccines (1 - 3-dose series) 12/30/1994 Hepatitis C Screening 12/30/1997 Hepatitis B Vaccines (1 of 3 - 19+ 3-dose series) 12/30/1998 Mammogram 11/13/2023 11/12/2022 Dental Oral Exam 12/14/2024 06/15/2024, 07/2016, 01/29/2016 COVID-19 Vaccine ( season) 2025 04/09/2021, 09/06/2020, 08/16/2020 Influenza Vaccine (#1) 2025 , 04/09/2021, 03/12/2020, Additional history exists Cervical Cancer Screening 03/12/2025 HPV/Cotest 03/12/2025 03/12/2020 Dental Prophylaxis 06/25/2025 12/22/2024, 1 07/21/2023, 11/18/2017, Additional history exists SDOH Screening 07/22/2025 07/22/2024 Depression Monitoring 08/16/2025 02/16/2025, 025 Dental X-Ray: Bitewings 12/17/2025 12/17/19, 05/20/2024, 11/18/2017, Additional history exists Disability Screening 02/15/2026 02/15/2025 Alcohol/Substance Use Screening 02/16/2026 02/16/2025 Tobacco Screening 02/16/2026 02/16/2025 Pap Smear 07/11/2026 07/11/2021, 03/12/2020 Dental X-Ray: Full Mouth 05/21/2027 05/20/2024, 09/10/2015 Zoster Vaccines (1 of 2) 12/30/2029 DTaP/Tdap/Td [...] Low TSH level Abnormal thyroid function test HIV 1/2 ANTIGEN/ANTIBODY, FOURTH GENERATION W/RFL Routine 11/24/2024 9:38 AM EDT PERIODIC ORAL [...] to Free T4 (01/18/2025 9:53 AM EDT) TSH reflex Free T4 <0.01(L) 0.32 - 4.0 uIU/mL [facility] Blood 01/18/2025 9:53 AM EDT 01/18/2025 11:02 AM EDT us Argelia Oh MD LAB BLOOD ORDERABLES Fin al Result [facility] [address] [place] [address] [phone] * Lyme Disease Ab with Reflex to Blot (IgG, IgM) (01/18/2025 9:53 AM EDT) Lyme Antibody Screen <0.90 index [facility] Comment:Index Interpretation ----- < 0.90 [...] when erythemamigrans is apparent.THIS TEST WAS PERFORMED AT:[employer] [address] [id number] RANGEL MD Lyme Blot TNP [facility] 01/18/2025 9:53 AM EDT 01/18/2025 11:23 AM EDT Argelia Oh MD LAB BLOOD ORDERABLES Fin al Result [facility] [address] [place] [phone] * (ABNORMAL) CBC auto differential (01/18/2025 9:53 AM EDT) White Blood Count 6.4 4.8 - 10.8 X10*3/uL [facility] Red Blood Count 4.76 4.20 - 5.50 X10*6/uL [facility] Hemoglobin 12.8 12.0 - 16.0 g/dl [facility] Hematocrit 39.6 37.0 - 47.0 % [facility] Mean Corpuscular Volume 83.2 80.0 - 98.0 fL [facility] Mean Corpuscular Hemoglobin 26.9(L) 27.0 - 33.0 pg [facility] Mean Corpuscular HGB Conc 32.3 31.0 - 35.0 g/dl [facility] Red Cell Distribution Width 14.5 11.0 - 16.0 % [facility] Platelet Count 297 160 - 400 X10*3/uL [facility] Mean Platelet Volume 10.2 9.4 - 12.3 fL [facility] Neutrophils Percent Auto 58.8 45 - 73 % [facility] Imm Gran Pct Auto 0.2 0.0 - 0.4 % [facility] Lymphocytes Percent Auto 31.9 20 - 40 % [facility] Monocytes Percent Auto 4.1 2 - 11 % [facility] Eosinophils Percent Auto 4.8(H) 0 - 4 % [facility] Basophils Percent Auto 0.2 0 - 2 % [facility] NRBC Pct Auto 0.0 0.0 - 0.2 /100WBC [facility] Neutrophils Absolute Auto 3.8 2.0 - 8.3 x10*3/uL [facility] Imm Gran Abs Auto 0.01 0.00 - 0.03 X10*3/uL [facility] Lymphocytes Absolute Auto 2.0 1.2 - 4.9 X10*3/uL [facility] Monocytes Absolute Auto 0.3 0.1 - 1.2 X10*3/uL [facility] Eosinophils Absolute Auto 0.3 0.0 - 0.4 X10*3/uL [facility] Basophils Absolute Auto 0.0 0.0 - 0.2 X10*3/uL [facility] NRBC Abs Auto 0.000 0.0 - 0.012 X10*3/uL [facility] Blood Venous blood specimen / Unknown 01/18/2025 9:53 AM EDT 01/18/2025 11:02 AM EDT us Argelia Oh MD LAB BLOOD ORDERABLES Fin al Result [facility] [address] [place] [address] [phone] * T3, Free (01/18/2025 9:53 AM EDT) T3, Free 3.9 2.3 - 4.2 pg/mL [facility] Comment:THIS TEST WAS PERFOR MED AT:[facility] [place] [id number] RANGEL MD Blood Venous blood specimen / Unknown 01/18/2025 9:53 AM EDT 01/18/2025 11:02 AM EDT Argelia Oh MD LAB BLOOD ORDERABLES Fin al Result Performing Organization Address [facility] Co de Phone Number [facility] [address] [place] [phone] * (ABNORMAL) T3, Total (01/18/2025 9:53 AM EDT) T3, Total 184(A) 76 - 181 ng/dL [facility] Comment:THIS TEST WAS PERFOR MED AT:[facility] [place] [phone] RANGEL MD Blood Venous blood specimen / Unknown 01/18/2025 9:53 AM EDT 01/18/2025 11:02 AM EDT Argelia Oh MD LAB BLOOD ORDERABLES Fin al Result Performing Organization Address [facility] de Phone Number [facility] [address] [place] [phone] * (ABNORMAL) TSH (01/18/2025 9:53 AM EDT) Pathologist [facility] Thyroid Stimulating Hormone <0.01(L) 0.32 - 4.0 uIU/mL [facility] Comment:TSH 3rd Generation ( [facility]) Blood Venous blood specimen / Unknown 01/18/2025 9:53 AM EDT 01/18/2025 11:02 AM EDT Argelia Oh MD LAB BLOOD ORDERABLES Fin al Result Performing Organization Address [facility] Co de Phone Number [facility] [address] [place] [phone] * T4, Free (01/18/2025 9:53 AM EDT) Free T4 (Free Thyroxine) 1.07 0.71 - 1.85 ng/dL [facility] Blood Venous blood specimen / Unknown 01/18/2025 9:53 AM EDT 01/18/2025 11:02 AM EDT Argelia Oh MD LAB BLOOD ORDERABLES Fin al Result Performing Organization Address City/[facility]/ZIP Co de Phone Number [facility] [address] [place] [phone] * T4 (Thyroxine), Total (01/18/2025 9:53 AM EDT) Pathologist [facility] T4 Thyroxine 11.5 4.5 - 12.0 ug/dL [facility] Blood Venous blood specimen / Unknown 01/18/2025 9:53 AM EDT 01/18/2025 11:02 AM EDT Result [facility] Argelia Oh MD LAB BLOOD ORDERABLES Fin al Result Performing Organization Address City/[facility] Co de Phone Number [facility] [address] [place] [phone] * POCT urinalysis dipstick manually resulted (12/09/2024 1:59 PM EDT) Pathologist [facility] Color, UA Yellow Clarity, UA Clear Glucose, UA Negative Bilirubin, UA Negative Ketones, UA Negative Spec Grav, UA 1.025 Blood, UA Negative Negative, None Detected pH, UA 6.0 Protein, UA Negative Urobilinogen, UA 0.2 Leukocytes, UA Negative Negative, Rare, Trace Nitrite, UA Negative Negative, None Detected Urine 12/09/2024 1:59 PM EDT Result [facility] Kristine Mitchell NP POINT OF CARE TEST ENTER/EDIT OR DERABLES Final Result * Thyroid Peroxidase Antibodies (12/09/2024 1:55 PM EDT) Pathologist [facility] Thyroid Peroxidase Antibodies 1 <9 IU/mL [facility] Comment:THIS TEST WAS PERFOR MED AT:[facility] [place] [phone] RANGEL MD Blood Venous blood specimen / Unknown 12/09/2024 1:55 PM EDT 12/09/2024 3:51 PM EDT Argelia Oh MD LAB BLOOD ORDERABLES Fin al Result Performing Organization Address [facility] de Phone Number [facility] [address] [place] [phone] * Thyroglobulin Antibodies (12/09/2024 1:55 PM EDT) [facility] Thyroglobulin Antibodies <1 < or = 1 IU/mL [facility] Comment:THIS TEST WAS PERFOR MED AT:[employer] [address] [id number] RANGEL MD Blood Venous blood specimen / Unknown 12/09/2024 1:55 PM EDT 12/09/2024 3:51 PM EDT Argelia Oh MD LAB BLOOD ORDERABLES Fin al Result Performing Organization Address [facility] de Phone Number [facility] [address] [place] [phone] * (ABNORMAL) Comprehensive Metabolic Panel (12/09/2024 1:55 PM EDT) [facility] Sodium 140 135 - 145 mmol/L [facility] Potassium 3.9 3.3 - 5.1 mmol/L [facility] Chloride 110(H) 96 - 108 mmol/L [facility] Carbon Dioxide 23 22 - 29 mmol/L [facility] Anion Gap 11(L) 12 - 20 [facility] Urea Nitrogen (BUN) 15 9 - 16 mg/dL [facility] Creatinine, Serum 0.70 0.5 - 1.4 mg/dL [facility] Estimated Glomerular Filt Rate >60 [facility] Comment:Chronic Kidney Disea se: Estimated GFR < 60 mL/min/[id number] Kidney Disease: Estimated GFR < 15 mL/min/1.73m2 Glucose 82 60 - 115 mg/dL [facility] Calcium 9.6 8.4 - 10.2 mg/dL [facility] Bilirubin, Total 0.3 0.0 - 1.0 mg/dL [facility] Aspartate Amino Transferase 19 5 - 31 U/L [facility] Alanine Aminotransferase 16 0 - 31 U/L [facility] Total Protein 7.9 6.5 - 8.0 g/dL [facility] Albumin Level 4.2 3.5 - 5.0 g/dL [facility] Alkaline Phosphatase 52 39 - 117 U/L [facility] Blood Venous blood specimen / Unknown 12/09/2024 1:55 PM EDT 12/09/2024 3:51 PM EDT Kristine Mitchell NOZZLE CEMENT SPRAYER HELPER LAB BLOOD ORDERABLES Final Resul t [facility] [address] [place] [phone] * HIV-1/2 Antigen and Antibodies, Fourth Generation, with Reflexes (11/24/2024 9:38 AM EDT) HIV AB/AG Nonreactive Nonreactive [facility] Comment:HIV-1 p24 Ag and/or HIV-1/HIV-2 Ab not detected.A test result that is nonreactive does not exclude thepossibility of exposure to or infection with HIV-1 and/orHIV-2. Nonreactive results in this assay for individualswith prior exposure to HIV-1 and/or HIV-2 may be due toantigen and antibody levels that are below the limit ofdetection of this assay.The [employer] HIV Ag/Ab Combo assay result andsupplemental assay results should be interpreted inconjunction with the patient's clinical presentation,history and other laboratory results. If the results areinconsistent with clinical evidence, additional testing issuggested to confirm the result. 11/24/2024 9:38 AM EDT 11/24/2024 11:02 AM EDT Argelia Oh MD LAB BLOOD ORDERABLES Fin al Result [facility] [address] [place] [phone] [phone] * Pap Smear (07/11/2021 12:00 AM EST) Swab Historical Provider LAB CYTOLOGY ORDERABLES F inal Result Performing Organization Address [facility] Co de Phone Number [facility] [address] [place] [phone] * HPV GENOTYPES 16,18/45 (03/12/2020 12:39 PM EDT) Pathologist [facility] HPV 16 RNA NOT DETECTED NOT DETECTED [facility] HPV 18/45 RNA NOT DETECTED NOT DETECTED [facility] Comment: This test was performed using the APTIMA HPV 16 18/45 genotype assay ([employer] The assay can differentiate HPV 16 from HPV 18 and/or HPV 45, but does not differentiate between HPV 18 and HPV 45. The analytical performance characteristics of this assay have been determined by [employer]. The modifications have not been cleared or approved by the FDA. This assay has been validated pursuant to the CLIA regulations and is used for clinical purposes. 03/12/2020 12:3 9 PM EDT us Argelia Oh MD LAB CYTOLOGY ORDERABLES Final Result Performing Organization Address City/[facility]/ZIP Co de Phone Number [facility] [address] from Last 3 Months or Most Recently Relevant to Health Maintenance Insurance [facility] STANDARD MEDICARE DENTAL-[facility] MEDICAID STAND ADULT Care Teams Soapstoner Relationship Specialty Start Date End Date Argelia Oh MD [address] [place] [address] PCP - General Family Medicine 01/08/17
--- OUTSIDE RECORDS SUMMARY | 2025-03-03 09:34 | XMS_ITS | Encounter Summary ---
Author Organization [place] [facility] Care Team Providers Care Thread Dresser Name Role Phone Chun Kat NP Primary Care Provider [phone] Encounter Details Date Type Department Care Team ([facility] st Contact Info) Description 10/22/2015 Abstract [facility] Primary Care [place] [address] [facility], [address] [place] [address] Provider, Historical . [phone] (Fax) Social History Tobacco Use Types Packs/Day [...] on filedocumented in this encounter Care Teams Thread Dresser Relationship Specialty Start Date End Date Chun Kat NP PCP - General 10/11/15 08/13/17 documented as of this encounter
--- OUTSIDE RECORDS SUMMARY | 2025-03-03 09:34 | XMS_ITS | Encounter Summary ---
Author Organization [employer] Address [address] [facility] [address] [place] [address] Care Team Providers Care Drawstring Knotter Name Role Phone Argelia Oh MD Primary Care Provider + Encounter Details Date Type Department Care Team (Late st Contact Info) Description 07/25/2022 Orders Only [facility] [address] [place] [address] Diane Joiner LPN Social History Tobacco Use [...] ADV Bacterial Vaginosis (BV), TMA NEGATIVE NEGATIVE [facility] Comment:THIS TEST WAS PERFOR MED AT:[employer] [place] [id number] RANGEL MD 02/25/2023 11:5 3 AM EDT 02/25/2023 6:26 PM EDT us Yadira Pak MD LAB BODY FLUIDS AND S TOOLS ORDERABLES Final Result Performing Organization Address City/State/[facility] Co de Phone Number [facility] [address] [place] [phone] documented in this encounter Visit Diagnoses Not on filedocumented in this encounter Care Teams Drawstring Knotter Relationship Specialty Start Date End Date Argelia Oh MD [address] [place] [phone] PCP - General Family Medicine 01/08/17 documented as of this encounter
--- OUTSIDE RECORDS SUMMARY | 2025-03-03 09:34 | XMS_ITS | Clinical Summary ---
Author Organization [employer] Address [address] [place] [phone] Care Team Providers Care Phlebotomy Technologist Name Role Phone Unavailable Primary Care Provider [...]
[2025-03-03 11:15] LABS: Free T4 (Free Thyroxine) 0.89 ng/dL (0.71-1.85); Thyroid Stimulating Hormone < 0.01 uIU/mL (0.32-4.0)
== END 2025-03-03 09:08 | disposition home or self-care (01) ==
LOC: HO.LAB 09:07
PROVIDERS: PCP Internal Medicine; Visit Provider Student in an Organized Health Care Education/Training Program
DX: E07.9 Disorder of thyroid, unspecified (principal)
CPT/HCPCS: 36415; 82306; 84439; 84443; 84480

== ENCOUNTER 2025-03-16 09:55 | Outpatient (AMB) | payer MEDICARE, MEDICAID, SELFPAY ==
[2025-03-16 10:00] VITALS: BP 126/80; PULSE 79; O2SAT 100; BMI 21.3
--- NOTE | 2025-03-16 10:00 | A.OFFVIS_ITS ---
Vital Signs 03/16/25 10:00 Height 5 ft 5 in Weight 127 lb 13.89 oz BMI 21.3 BP 126/80 Blood Pressure Location Rt brachial Position Sitting Pulse 79 Pulse Source Pulse Oximeter Pulse Oximetry (%) 100 Oxygen Delivery Method Room Air Intake Visit Reasons: Hyperthyroidism Intake Note: Patient presents here today for Hyperparathyroidism follow-up after completion of work-up. Poultry Feed Supervisor Required: No Accompanied by: Self / Same As Patient Allergies clavulanic acid (From AUGMENTIN) Allergy (Intermediate, Verified 03/16/25 10:01) STOMACH UPSET Medication List - Last Reconciled 03/16/25 by Yeset Samara Grimes MD desog-e.estradiol/e.estradiol 0.15-0.02 mgx21 /0.01 mg x 5 (Viorele (28)) 1 tab PO DAILY fluoride (sodium) 1.1% (SF 5000 Plus) appl PO methadone 28 mg PO DAILY topiramate 200 mg PO BID valacyclovir 2,000 mg PO Q12H HPI Comments Details: HPI - Onset and duration of symptoms: Fatigue started before the summer. - Nature and severity of symptoms: The patient reports extreme fatigue, requiring sleep earlier than usual (as early as 4 PM). They have been sleeping more than usual, up to 10 hours a night, despite previous insomnia due to bipolar disorder. - Associated symptoms: Increased urination, persistent thirst, and difficulty losing weight despite dietary changes to a vegan diet and regular gym attendance. - Previous episodes of hyperthyroidism: None reported. - Family history of thyroid disease: Patient was adopted - Current and prior treatments: The patient is tapering off methadone for past opiate addiction, currently reducing by 1 mg per month. - Supplements: Taking Miguel multivitamins, probiotic, and metabolism supplements, which contain biotin ROS: - Constitutional: Fatigue - Neuro: No tremors or hand shaking - Psych: History of bipolar disorder; no current anxiety or nervousness - GI: No diarrhea; previously experienced constipation before dietary changes - Eyes: No changes in vision; no double vision or eye pain Interval history: Reports continuous fatigue, thirst and wakes up multiple times per day. She might have intermittent palpitations with no clear trigger. She is more concerns about increased thirst, fatigue and polyuria with nocturia. Review of her labs showed that she has persistently suppressed TSH with normal FT4 levels, and 1 time elevated T3 while she was on Biotin. Physical exam: General: Well appearing. NAD. Not Cushingoid or Acromegalic Neck/Thyroid: Thyroid not enlarged, no nodules. Eyes: No conjunctival injection, not lid lag or proptosis CV: RRR, no murmur. No edema. Resp: Lungs clear to auscultation bilaterally Abdomen: Soft, nontender. nondistended Extremities/Neuro: No weakness or tremor of outstretched hands Labs: Laboratory Tests 11/24/24 12/09/24 01/18/25 09:38 13:55 09:53 Sodium 138 140 Potassium 3.8 3.9 Chloride 110 H 110 H BUN 11 15 Creatinine 0.69 0.70 Random Glucose 99 82 Calcium 8.8 9.6 D AST 25 19 ALT 16 16 Alkaline Phosphatase 47 52 TSH < 0.01 L < 0.01 L Free T4 1.07 1.07 Thyroxine (T4) 11.5 Total T3 184 H 03/03/25 09:25 Sodium Potassium Chloride BUN Creatinine Random Glucose Calcium AST ALT Alkaline Phosphatase TSH < 0.01 L Free T4 0.89 Thyroxine (T4) Total T3 162 PFSH Surgical History Hx of breast augmentation History of dental surgery Hx of sinus surgery Family History Father Unknown family medical history Mother Unknown family medical history Social History Alcohol intake: current Alcohol intake frequency: holidays/special occasions only Patient Tobacco Use Status: Never used Tobacco Physical Exam Vital Signs: Last Vital Signs Pulse 79 03/16/25 10:00 BP 126/80 03/16/25 10:00 Pulse Ox 100 03/16/25 10:00 Oxygen Delivery Method Room Air 03/16/25 10:00 BMI result Body Mass Index 21.3 Assessment & Plan Assessment & Plan (1) Thyroid dysfunction: Code(s): E07.9 - Disorder of thyroid, unspecified Category: Medical Plan: She reports that today she is more concerned about the pletora of symptoms and not an independent symptoms per se. She has been experiencing these symptoms for about 8 months but she feels these have gotten worse in the last 6 months. Unclear etiology of her symptoms, which are not very highly suspicious for hyperthyroidism despite suppressed TSH; in the other hand, central h ypothyroidism could be theoretically possible, but recurrent normal FT4 and even upper limit of normal T3, and the lack of specific trigger for it makes me doubt this, I will order FT4 by dialysis as it is more accurate FT4 measuring method. Other differentials like DM, or MARKET MAKER deficiency seem less likely. She otherwise is on control for 6 months, and was previously regular with her periods. She denies nipple discharge (has breast implants). She denies any recent changes in medications, but she does report taking [place] a long time (almost 30 years ago) and for a brief 2 months. She has been on Topomax for over 20 years for her Bipolar disorder. I would order A1c and a urine osmolality. If she continues to have suppressed TSH, and the rest of the tests come back negative, I will order an MRI of her brain to rule pituitary disease. Plan Patient has a history of vitamin-D insufficiency, last checked in 2020 per our records. We will repeat labs and provide supplementation as needed. Advised the patient to start taking vitamin-D supplements 9055-8606 IU daily until labs are resulted Orders: Orders Hemoglobin A1c Today E07.9 - Disorder of thyroid, unspecified Osmolality, Serum Today E07.9 - Disorder of thyroid, unspecified FT4 by [facility] Dialysis Today E07.9 - Disorder of thyroid, unspecified Osmolality Urine Today E07.9 - Disorder of thyroid, unspecified Basic Metabolic Panel Today E07.9 - Disorder of thyroid, unspecified Coding Level of Care Code Est Pt Level 4 (64968) Diagnoses Thyroid dysfunction E07.9 Time Spent (min) 35 Comment Time spent reviewing previous records, labs, imaging, provider notes; and education
--- OUTSIDE RECORDS SUMMARY | 2025-03-16 11:31 | XMS_ITS | Encounter Summary ---
Author Organization [facility] Care Team Providers Care Circular Saw Operator Name Role Phone Chun Kta NP Primary Care Provider [phone] Encounter Details Date Type Department Care Team ([facility] st Contact Info) Description 10/22/2015 Abstract [facility] Primary Care [place] [address] [facility], [address] [place] [id number] Provider, Historical . [phone] (Fax) Social History Tobacco Use Types Packs/Day [...] on filedocumented in this encounter Care Teams Circular Saw Operator Relationship Specialty Start Date End Date Chun Kat NP PCP - General 10/11/15 08/13/17 documented as of this encounter
--- OUTSIDE RECORDS SUMMARY | 2025-03-16 11:31 | XMS_ITS | Encounter Summary ---
Author Organization [employer] Address [address] [facility] [address] [place] [address] Care Team Providers Care Furniture Cleaner Name Role Phone Argelia Oh MD Primary Care Provider + Encounter Details Date Type Department Care Team ([facility] st Contact Info) Description 07/29/2023 Orders Only [facility] [address] [place] [address] Lata Mcdonnell, RAJINDER [address] [place] [address] Social History Tobacco Use Types Packs/Day Years [...] ORDERABLES F inal Result Performing Organization Address [facility]/State/[place] Co de Phone Number [facility] [address] [place] [phone] documented in this encounter Visit Diagnoses Not on filedocumented in this encounter Care Teams Furniture Cleaner Relationship Specialty Start Date End Date Argelia Oh MD [address] [place] [phone] PCP - General Family Medicine 01/08/17 documented as of this encounter
--- OUTSIDE RECORDS SUMMARY | 2025-03-16 11:31 | XMS_ITS | Encounter Summary ---
Author Organization [employer] Address [address] [place] [address] [address] [place] [address] Care Team Providers Care Renal Technician Name Role Phone Argelia Oh MD Primary Care Provider + Reason for Visit * Reason Onset Date Comments Med Refill 05/12/2024 Encounter Details Date Type Department Care Team ([facility] st Contact Info) Description 05/12/2024 Telephone [facility] [address] [place] [address] Argelia Oh MD [address] [place] [address] Med Refill Social History Tobacco Use Types [...] 1 g tablet To be sent to: [facility] #[id number] documented in this encounter Plan of Treatment Not on file documented as of this encounter Visit Diagnoses Not on filedocumented in this encounter Care Teams Renal Technician Relationship Specialty Start Date End Date Argelia Oh MD [address] [place] [phone] PCP - General Family Medicine 01/08/17 documented as of this encounter
--- OUTSIDE RECORDS SUMMARY | 2025-03-16 11:31 | XMS_ITS | Encounter Summary ---
Author Organization [employer] Address [address] [place] [address] [address] [place] [address] Care Team Providers Care Senior Java Developer Name Role Phone Argelia Oh MD Primary Care Provider + Reason for Visit * Reason Onset Date Comments Med Refill 03/29/2024 Encounter Details Date Type Department Care Team ([facility] st Contact Info) Description 03/29/2024 Telephone [facility] [address] [place] [address] Argelia Oh MD [address] [place] [address] Med Refill Social History Tobacco Use Types [...] 1 g tablet To be sent to: [facility] #[id number] documented in this encounter Plan of Treatment Not on file documented as of this encounter Visit Diagnoses Not on filedocumented in this encounter Care Teams Senior Java Developer Relationship Specialty Start Date End Date Argelia Oh MD [address] [place] [phone] PCP - General Family Medicine 01/08/17 documented as of this encounter
--- OUTSIDE RECORDS SUMMARY | 2025-03-16 11:31 | XMS_ITS | Encounter Summary ---
Author Organization [employer] Address [address] [facility] [address] [place] [address] Care Team Providers Care Interactive Media Marketing Specialist Name Role Phone Argelia Oh MD Primary Care Provider + Encounter Details Date Type Department Care Team (Late st Contact Info) Description 07/25/2022 Orders Only [facility] [address] [place] [address] Diane Joiner LPN Social History Tobacco Use [...] ADV Bacterial Vaginosis (BV), TMA NEGATIVE NEGATIVE [facility] Comment:THIS TEST WAS PERFOR MED AT:[employer] [place] [phone] RANGEL MD 02/25/2023 11:5 3 AM EDT 02/25/2023 6:26 PM EDT us Yadira Pak MD LAB BODY FLUIDS AND S TOOLS ORDERABLES Final Result Performing Organization Address City/State/[facility] Co de Phone Number [facility] [address] [place] [phone] documented in this encounter Visit Diagnoses Not on filedocumented in this encounter Care Teams Interactive Media Marketing Specialist Relationship Specialty Start Date End Date Argelia Oh MD [address] [place] [phone] PCP - General Family Medicine 01/08/17 documented as of this encounter
--- OUTSIDE RECORDS SUMMARY | 2025-03-16 11:31 | XMS_ITS | Clinical Summary ---
Author Organization [employer] Address [address] [place] [id number] Care Team Providers Care Environmental Issues Instructor Name Role Phone Unavailable Primary Care Provider [...] screening 12/30/2024 Covid-19 vaccine series ( - 2024- season) 2025 RSV Immunization (1 - 1-dose [...]
--- OUTSIDE RECORDS SUMMARY | 2025-03-16 11:31 | XMS_ITS | Clinical Summary ---
Author Organization [employer] Address [address] [place] [address] [address] [place] [address] Care Team Providers Care Teacher'S Assistant Name Role Phone Argelia Oh MD Primary Care Provider + Allergies No known active allergies Medications methadone (Dolophine) 10 MG/ML solution Take 40 mg by mouth. Active Sodium Fluoride 1.1 % creamIndicatio ns:Dental caries [place] teeth for 2 minutes, morning and night. [...] PAP smear: UTD, will obtain record from [facility]. Mammogram: apparently UTD, will obtain records from [facility]. Eye exam: UTD 11/2025 Lipids/FBS: [...] up to date, will obtain record from [facility] Mammogram apparently up to date, will obtain records from [facility] Eye exam overdue, she will [...] Reminded her to follow up closely with monomer recovery operator and Methadone clinicians. Advised to avoid rapid [...] doing well on Topamax. Was referred to [facility] by Methadone counselor she will [...] methadone taper and address this with recover horse riding coach or instructor Will refer to to help her connect with a prescriber / counselor Assessment & Plan (12/22/2022 5:12 PM EDT): Doing well on topamax 200mg BID continue fu with couselor at [facility] and [facility] Pt is able to reach out for safety counseled to avoid recreational substances FU with az in 6 months for PE Visual impairment [...] Type Department Care Team Description 02/21/[address] [address] Argelia Oh MD Breast Cancer Screening 02/16/2025 3:15 PM EDT Office Visit [address] [address] Argelia Oh MD Screening mammogram for breast cancer (Primary Dx); Nonintractable chronic migraine 02/16/2025 Travel 02/15/[address] [address] Argelia Oh MD chart prep 02/15/2025 Travel 02/08/2025 Patient Outreach [address] [address] Argelia Oh MD Pre-visit Planning ([facility] screening completed on 07/22/2024) 01/26/2025 Results Follow-Up [address] [address] Argelia Oh MD Lyme Disease Ab with Reflex to Blot (IgG, IgM), TSH with Reflex to Free T4, CBC auto differential 01/16/[address] [address] Argelia Oh MD 01/11/[address] [address] Argelia Oh MD Lab Orders 01/10/2025 8:00 AM EDT Office Visit [facility] [address] [place] [address] Kavita Sanchez DDS 12/22/2024 9:00 AM EDT Office Visit [facility] [address] [place] [address] Kavita Sanchez DDS 12/22/2024 8:00 AM EDT Office Visit [facility] [address] [place] [address] Toan Martins Dental calculus (Primary Dx) 12/21/[address] [address] Argelia Oh MD Results 12/16/2024 8:00 AM EDT Office Visit [facility] [address] [place] [address] Kavita Sanchez, DDS 12/16/2024 Results Follow-Up [address] [address] Kristine Mitchell, ROBERTO Comprehensive Metabolic Panel, POCT urinalysis dipstick manually resulted 12/15/2024 Travel from Last 3 Months Immunizations Immunization Administration [...] is your housing situation today? I have kaileekeke chen 07/22/[address] you [...] 03/12/2020 Dental X-Ray: Full Mouth 05/21/2027 05/20/2024, 10/2015 Zoster Vaccines (1 of 2) 12/30/2029 [...] Procedure Name Priority Date/Time Associated Diagnosis Comments T3, TOTAL Routine 03/03/2025 9:25 AM EDT TSH Routine 03/03/2025 9:25 AM EDT T4, FREE Routine 03/03/2025 9:25 AM EDT VITAMIN D,25-OH,TOTAL,IA Routine 03/03/2025 9:25 AM EDT CBC WITH AUTO DIFFERENTIAL Routine 01/18/2025 9:53 [...] TREATMENT PLANNING Routine 12/16/2024 8:00 AM EDT HIV 1/2 ANTIGEN/ANTIBODY, FOURTH GENERATION [...] Recently Relevant to Health Maintenance Results * Vitamin D, 25-Hydroxy, Total, Immunoassay (03/03/2025 9:25 AM EDT) Vitamin D 25-OH Total 41.9 >30 ng/mL [facility] Comment: Health Based Reference Values*< 20 ng/mL Majcntfuv41-10 ng/mL Insufficient> 30 ng/mL Sufficient*Anastasia BOYD. N Engl J Med. 2007;357:266-280There is no well-established upper level of normal vitamin Dlevels. Some laboratories use 50 ng/mL as an upper limit ofnormal. However, toxicity is patient-dependent and may occurat any level. Careful correlation with the patient'spresentation is necessary and, if there is concern forvitamin D toxicity, treatment should be consideredirrespective of the serum level.Care must be taken in interpreting Vitamin D results fromdifferent laboratories and methodologies. Published datademonstrated that results from patients undergoinghemodialysis may show a negative bias when tested withvarious automated 25-OH vitamin D assays when compared toLC-MS/MS.When testing samples from patients whose predominant form ofVitamin D is Vitamin D2, such as patients receiving VitaminD2 supplementation, results that are subtherapeutic shouldbe confirmed with another method such as LC-MS/MS. 03/03/2025 9:25 AM EDT 03/03/2025 9:25 AM EDT us Generic External Data Provider LAB BLOOD ORDERAB LES Final Result [facility] [address] [place] [phone] * T3, Total (03/03/2025 9:25 AM EDT) Only the most recent of2 resultswithin the time period is included. T3, Total 162 76 - 181 ng/dL [facility] Comment:THIS TEST WAS PERFOR MED AT:[facility] [place] [phone] RANGEL MD 03/03/2025 9:25 AM EDT 03/03/2025 9:25 AM EDT us Generic External Data Provider LAB BLOOD ORDERAB LES Final Result Performing Organization Address City/[facility] Co de Phone Number [facility] [address] [place] [phone] * (ABNORMAL) TSH (03/03/2025 9:25 AM EDT) Only the most recent of2 resultswithin the time period is included. Thyroid Stimulating Hormone <0.01(L) 0.32 - 4.0 uIU/mL [facility] Comment:TSH 3rd Generation ( [facility]) 03/03/2025 9:25 AM EDT 03/03/2025 9:25 AM EDT us Generic External Data Provider LAB BLOOD ORDERAB LES Final Result Performing Organization Address [facility] Co de Phone Number [facility] [address] [place] [phone] * T4, Free (03/03/2025 9:25 AM EDT) Only the most recent of2 resultswithin the time period is included. Free T4 (Free Thyroxine) 0.89 0.71 - 1.85 ng/dL [facility] 03/03/2025 9:25 AM EDT 03/03/2025 9:25 AM EDT us Generic External Data Provider LAB BLOOD ORDERAB LES Final Result Performing Organization Address City/[facility]/ZIP Co de Phone Number [facility] [address] [place] [phone] * (ABNORMAL) TSH with Reflex to Free T4 (01/18/2025 9:53 AM EDT) Pathologist [facility] TSH reflex Free T4 <0.01(L) 0.32 - 4.0 uIU/mL [facility] Blood 01/18/2025 9:53 AM EDT 01/18/2025 11:02 AM EDT Argelia Oh MD LAB BLOOD ORDERABLES Fin al Result Performing Organization Address City/[facility] Co de Phone Number [facility] [address] [place] [phone] * Lyme Disease Ab with Reflex to Blot (IgG, IgM) (01/18/2025 9:53 AM EDT) [facility] Lyme Antibody Screen <0.90 index [facility] Comment:Index Interpretation ----- < 0.90 Negative [...] when erythemamigrans is apparent.THIS TEST WAS PERFORMED AT:[facility] [place] [phone] RANGEL MD Lyme Blot TNP [facility] 01/18/2025 9:53 AM EDT 01/18/2025 11:23 AM EDT Argelia Oh MD LAB BLOOD ORDERABLES Fin al Result [facility] [address] [place] [phone] * (ABNORMAL) CBC auto differential (01/18/2025 9:53 AM EDT) White Blood Count 6.4 4.8 - 10.8 X10*3/uL [facility] Red Blood Count 4.76 4.20 - 5.50 X10*6/uL [facility] Hemoglobin 12.8 12.0 - 16.0 g/dl [facility] Hematocrit 39.6 37.0 - 47.0 % [facility] Mean Corpuscular Volume 83.2 80.0 - 98.0 fL [facility] Mean Corpuscular Hemoglobin 26.9(L) 27.0 - 33.0 pg [facility] Mean Corpuscular HGB Conc 32.3 31.0 - 35.0 g/dl [facility] Red Cell Distribution Width 14.5 11.0 - 16.0 % [facility] Platelet Count 297 160 - 400 X10*3/uL [facility] Mean Platelet Volume 10.2 9.4 - 12.3 fL [facility] Neutrophils Percent Auto 58.8 45 - 73 % [facility] Imm Gran Pct Auto 0.2 0.0 - 0.4 % [facility] Lymphocytes Percent Auto 31.9 20 - 40 % [facility] Monocytes Percent Auto 4.1 2 - 11 % [facility] Eosinophils Percent Auto 4.8(H) 0 - 4 % [facility] Basophils Percent Auto 0.2 0 - 2 % [facility] NRBC Pct Auto 0.0 0.0 - 0.2 /100WBC [facility] Neutrophils Absolute Auto 3.8 2.0 - 8.3 x10*3/uL [facility] Imm Gran Abs Auto 0.01 0.00 - 0.03 X10*3/uL [facility] Lymphocytes Absolute Auto 2.0 1.2 - 4.9 X10*3/uL [facility] Monocytes Absolute Auto 0.3 0.1 - 1.2 X10*3/uL [facility] Eosinophils Absolute Auto 0.3 0.0 - 0.4 X10*3/uL [facility] Basophils Absolute Auto 0.0 0.0 - 0.2 X10*3/uL [facility] NRBC Abs Auto 0.000 0.0 - 0.012 X10*3/uL [facility] Blood Venous blood specimen / Unknown 01/18/2025 9:53 AM EDT 01/18/2025 11:02 AM EDT Argelia Oh MD LAB BLOOD ORDERABLES Fin al Result Performing Organization Address City/[facility]/ZIP Co de Phone Number [facility] [address] [place] [phone] * T3, Free (01/18/2025 9:53 AM EDT) T3, Free 3.9 2.3 - 4.2 pg/mL [facility] Comment:THIS TEST WAS PERFOR MED AT:[email or web address] [address] [phone] RANGEL MD Blood Venous blood specimen / Unknown 01/18/2025 9:53 AM EDT 01/18/2025 11:02 AM EDT Argelia Oh MD LAB BLOOD ORDERABLES Fin al Result Performing Organization Address City/[facility]/ZIP Co de Phone Number [facility] [address] [place] [phone] * T4 (Thyroxine), Total (01/18/2025 9:53 AM EDT) T4 Thyroxine 11.5 4.5 - 12.0 ug/dL [facility] Blood Venous blood specimen / Unknown 01/18/2025 9:53 AM EDT 01/18/2025 11:02 AM EDT Argelia Oh MD LAB BLOOD ORDERABLES Fin al Result Performing Organization Address City/[facility]/ZIP Co de Phone Number [facility] [address] [place] [phone] * HIV-1/2 Antigen and Antibodies, Fourth Generation, with Reflexes (11/24/2024 9:38 AM EDT) HIV AB/AG Nonreactive Nonreactive [facility] Comment:HIV-1 p24 Ag and/or HIV-1/HIV-2 Ab not detected.A test result that is nonreactive does not exclude thepossibility of exposure to or infection with HIV-1 and/orHIV-2. Nonreactive results in this assay for individualswith prior exposure to HIV-1 and/or HIV-2 may be due toantigen and antibody levels that are below the limit ofdetection of this assay.The [email or web address] HIV Ag/Ab Combo assay result andsupplemental assay results should be interpreted inconjunction with the patient's clinical presentation,history and other laboratory results. If the results areinconsistent with clinical evidence, additional testing issuggested to confirm the result. 11/24/2024 9:38 AM EDT 11/24/2024 11:02 AM EDT Argelia Oh MD LAB BLOOD ORDERABLES Fin al Result Performing Organization Address [facility] Co de Phone Number [facility] [address] [place] [phone] * Pap Smear (07/11/2021 12:00 AM EST) Swab Frankie Provider LAB CYTOLOGY ORDERABLES F inal Result Performing Organization Address City/[facility]/ZIP Co de Phone Number [facility] [address] [place] [phone] * HPV GENOTYPES 16,18/45 (03/12/2020 12:39 PM EDT) HPV 16 RNA NOT DETECTED NOT DETECTED [facility] HPV 18/45 RNA NOT DETECTED NOT DETECTED [facility] Comment: This test was performed using the APTIMA HPV 16 18/45 genotype assay ([employer] The assay can differentiate HPV 16 from HPV 18 and/or HPV 45, but does not differentiate between HPV 18 and HPV 45. The analytical performance characteristics of this assay have been determined by [employer]. The modifications have not been cleared or approved by the FDA. This assay has been validated pursuant to the CLIA regulations and is used for clinical purposes. 03/12/2020 12:3 9 PM EDT us Argelia Oh MD LAB CYTOLOGY ORDERABLES Final Result [facility] [address] from Last 3 Months or Most Recently Relevant to Health Maintenance Insurance [facility] STANDARD MEDICARE [place] Care Teams Teacher'S Assistant Relationship Specialty Start Date End Date Argelia Oh MD [address] [place] [phone] PCP - General Family Medicine 01/08/17
== END 2025-03-16 10:41 | disposition home or self-care (01) ==
LOC: HO.ENCR 09:56
PROVIDERS: PCP Internal Medicine; Visit Provider Student in an Organized Health Care Education/Training Program
DX: E07.9 Disorder of thyroid, unspecified (principal)
CPT/HCPCS: 99214

== ENCOUNTER → 2025-03-16 09:55 | Outpatient (BNVA) | payer MEDICARE, MEDICAID, SELFPAY | PROVIDERS: PCP Internal Medicine; Visit Provider Student in an Organized Health Care Education/Training Program | DX: E07.9 Disorder of thyroid, unspecified (principal) | CPT/HCPCS: 99212 ==

== ENCOUNTER 2025-03-16 11:04 | Outpatient (REF) | payer MEDICARE, MEDICAID, SELFPAY ==
[2025-03-16 13:26] LABS: Osmolality, Serum 302 mosm/kg (281-305)
[2025-03-16 13:34] LABS: Anion Gap 10 (12-20); Blood Urea Nitrogen 12 mg/dL (9-16); Calcium 8.9 mg/dL (8.4-10.2); Carbon Dioxide 22 mmol/L (22-29); Chloride 112 mmol/L (96-108); Estimated Glomerular Filt Rate > 60; Potassium 4.4 mmol/L (3.3-5.1); Sodium 140 mmol/L (135-145)
[2025-03-21 08:24] LABS: FT4 by Equilib. Dialysis 1.1 ng/dL (0.9-2.2)
== END 2025-03-16 11:05 | disposition home or self-care (01) ==
LOC: HO.10HDL 11:04
PROVIDERS: Visit Provider Student in an Organized Health Care Education/Training Program
DX: Z13.1 Encounter for screening for diabetes mellitus (principal); E07.9 Disorder of thyroid, unspecified
CPT/HCPCS: 36415; 80048; 83036; 83930; 83935; 84439